=== PATIENT | male | born 1960 | race Caucasian/White ===

== ENCOUNTER 2020-12-28 06:30 | Day surgery (SDC) | payer OTHER, SELFPAY ==
[2020-12-25 11:43] VITALS: BMI 27.8
[2020-12-28 06:54] VITALS: BMI 27.6
[2020-12-28 06:55] VITALS: BP 119/75; PULSE 58; RESP 16; TEMP 35.9; O2SAT 97
[2020-12-28] MEDS: Lactated Ringers 1,000 ML 50 ML IV (07:04)
--- NOTE | 2020-12-28 07:13 | HO.ANESPROP2 ---
[facility] Past Medical History Medical History Arthritis [place] (obstructive sleep apnea) Family History Family history of problems with anesthesia: No Surgical History Surgical History H/O colonoscopy H/O right inguinal hernia repair Hx of left inguinal hernia repair History of Problems with Anesthesia: No Social History Social History Smoking Status: Never smoker Use of substances other than those prescribed or required for medical reasons: No Advance Directives: No Advance Directives Information Provided: Yes Meds Allergies Allergy/AdvReac Type Severity Reaction Status Date / Time HAYFEVER Allergy Mild ITCHY Uncoded 05/24/20 16:10 EYES, RUNNY NOSE, ETC. Active Medications: Current Medications Generic Name Dose Route Start Last Admin Trade Name Freq PRN Reason Stop Dose Admin Lactated Ringer's 1,000 mls @ 50 mls/hr 12/27/20 07:30 12/28/20 07:04 Lr IV 50 mls/hr .Q20H MIGUEL ÁNGEL Administration Sodium Biphosphate/Sodium Phosphate 133 ml 12/28/20 06:27 Sodium Phosphate,[place]-Dibasic 133 Ml Enema [place] ONCE PRN Poor Colonoscopy Prep Results Home Medications Medication Instructions Recorded Confirmed Last Taken Type multivitamin 1 tab PO DAILY 12/25/20 12/25/20 Unknown History Exam Exam Date and Time: December 28, 2020 0713 Height,Weight and Vital Signs: Height 6 ft 2 in Weight 97.522 kg Last Vital Signs Temp 96.7 F L 12/28/20 06:55 Pulse 58 12/28/20 06:55 Resp 16 12/28/20 06:55 BP 119/75 12/28/20 06:55 Pulse Ox 97 12/28/20 06:55 Airway Mallampati Class: I TM Dist: >3cm Neck ROM: Full Heart: ok Lungs: ok Assessment and Plan Assessment Anesthesia Assessment: Anesthesia Plan Discussed and Chart Reviewed Final Anesthetic Review NPO: Yes ASA Class: III Final Preanesthetic Review: No Changes in Pt Med Stat, Meds/Allgs Chart Reviewed, Consent Obtained/Reviewed and Anes Risks/Benef Reviewed Patient Risk: Intermediate Procedure Risk: Low Anesthetic Plan Anesthetic Plan: MAC: and Agree w/ Assess. and Plan Disposition: Standard PACU
[2020-12-28 08:30] VITALS: BP 101/61; PULSE 57; RESP 18; TEMP 36.6; O2SAT 96
--- NOTE | 2020-12-28 08:31 | PM.OP ---
Brief Operative Note Date of Service: 12/28/20 Pre-op diagnosis: Screening Post-op diagnosis: other (Colon polyps) Procedure: Colonoscopy to the cecum with biopsies and removal of polyps Surgeon: Jass Farfan Anesthesia: MAC Estimated blood loss (mL): 5.0 Pathology: other (A. Polyp at 50cm B. Polyps at 30cm) Condition: stable Disposition: PACU
[2020-12-28 08:45] VITALS: BP 120/65; PULSE 72; RESP 18; O2SAT 97
--- NOTE | 2020-12-28 12:45 | OP_ITS ---
SURGEON: Jass Farfan MD INDICATIONS: The patient presents for evaluation of colorectal cancer screening. Full consent has been obtained from him for this, including risks of bleeding and perforation. PREOPERATIVE DIAGNOSIS: Colorectal cancer screening. POSTOPERATIVE DIAGNOSIS: PROCEDURE PERFORMED: Colonoscopy to cecum with biopsy and removal of polyps. ESTIMATED BLOOD LOSS: COMPLICATIONS: ANESTHESIA: Monitored anesthesia care. ASSISTANTS: SPECIMENS: POSTOPERATIVE DIAGNOSES: Colorectal cancer screening, small colon polyps, diverticulosis, and internal hemorrhoids. DESCRIPTION OF PROCEDURE: The patient was placed in the left lateral decubitus position. The digital rectal exam revealed no abnormalities. The Olympus video pediatric colonoscope was entered into the rectum and advanced easily to the cecum. Once in the cecum, I did identify normal-appearing cecal pouch with appendiceal orifice and a normal-appearing ileocecal valve. The entire cecum and ileocecal valve were well visualized and appeared normal. There was transillumination of light deep in the right lower quadrant. The scope was slowly withdrawn assessing all mucosal surfaces carefully. Preparation was excellent. At 50 cm, was a flat approximately 3 mm polyp, which was biopsied and completely removed with cold biopsy forceps. At 30 cm, were 2 flat less than 5 mm polyps, which were each biopsied and completely removed with cold biopsy forceps and placed in the same container. I did not visualize any other polyps, colitis, nor angiodysplasia. There was a mild amount of sigmoid diverticulosis. In the rectum, scope was retroflexed visualizing small internal hemorrhoids, but no other pathology. The rectal mucosa appeared normal. The scope was straightened out and withdrawn from the patient. He tolerated the procedure well and was returned to the recovery area in stable condition. IMPRESSION: 1. Small colon polyps, status post biopsy and removal. 2. Diverticulosis. 3. Internal hemorrhoids. PLAN: The results of the biopsies will be checked. If these are tubular adenoma, I would recommend a followup colonoscopy in 5 years. If they are all hyperplastic, I would recommend a followup colonoscopy in 10 years. He will otherwise see me on a p.r.n. basis. MD YOSEF Hopkins/FREDY / [id number]
== END 2020-12-28 09:23 | disposition home or self-care (01) ==
PROVIDERS: PCP Internal Medicine; Visit Provider Internal Medicine
PROC: 0DJD8ZZ Inspection of Lower Intestinal Tract, Via Natural or Artificial Opening Endoscopic (ICD-10-PCS; CPT 45378; principal; 2020-12-28 07:30)
DX: Z12.11 Encounter for screening for malignant neoplasm of colon (principal); D12.5 Benign neoplasm of sigmoid colon; K57.30 Diverticulosis of large intestine without perforation or abscess without bleeding; K64.8 Other hemorrhoids; G47.33 Obstructive sleep apnea (adult) (pediatric)
CPT/HCPCS: 45380; 88305

== ENCOUNTER 2021-10-17 08:41 | Outpatient (REF) | payer OTHER, SELFPAY ==
[2021-10-17 09:01] LABS: MANUAL DIFF FLAG NO
[2021-10-17 09:17] LABS: Basophils Percent Auto 0.5 % (0-2); Eosinophils Absolute Auto 0.1 X10*3/uL (0.0-0.4); Eosinophils Percent Auto 1.7 % (0-4); Hematocrit 44.1 % (42.0-52.0); Hemoglobin 14.2 g/dl (14.0-18.0); Imm Gran Abs Auto 0.03 X10*3/uL (0.00-0.03); Imm Gran Pct Auto 0.5 % (0.0-0.4); Lymphocytes Absolute Auto 1.6 X10*3/uL (1.2-4.9); Lymphocytes Percent Auto 24.8 % (20-40); Mean Corpuscular HGB Conc 32.2 g/dl (31.0-36.0); Mean Corpuscular Hemoglobin 28.5 pg (27.0-33.0); Mean Corpuscular Volume 88.6 fL (80.0-98.0); Mean Platelet Volume 11.5 fL (9.4-12.4); Monocytes Absolute Auto 0.6 X10*3/uL (0.1-1.2); Monocytes Percent Auto 9.8 % (2-11); Neutrophils Percent Auto 62.7 % (45-73); Platelet Count 198 X10*3/uL (160-400); Red Blood Count 4.98 X10*6/uL (4.60-5.80); White Blood Count 6.4 X10*3/uL (4.8-10.8)
[2021-10-17 09:42] LABS: Alanine Aminotransferase 29 U/L (0-40); Albumin Level 4.1 g/dL (3.5-5.0); Alkaline Phosphatase 81 U/L (39-117); Anion Gap 9 (12-20); Aspartate Amino Transferase 15 U/L (5-37); Bilirubin Total 0.6 mg/dL (0.0-1.0); Blood Urea Nitrogen 18 mg/dL (9-16); Calcium 9.3 mg/dL (8.4-10.2); Carbon Dioxide 33 mmol/L (22-29); Chloride 102 mmol/L (96-108); Cholesterol 194 mg/dL; Estimated Glomerular Filt Rate > 60; Glucose Fasting 104 mg/dL (60-99); HDL Cholesterol 40 mg/dL; LDL Cholesterol Calculated 137 mg/dl; Potassium 4.8 mmol/L (3.3-5.1); Sodium 139 mmol/L (135-145); Total Protein 6.7 g/dL (6.5-8.0); Triglycerides 86 mg/dL
[2021-10-17 10:07] LABS: Thyroid Stimulating Hormone 2.44 uIU/mL (0.32-4.0); Vitamin D 25-OH Total 25.8 ng/mL (>30)
[2021-10-17 10:38] LABS: Prostate Specific Antigen 0.97 ng/mL (<0.05-4.0)
[2021-10-17 10:44] LABS: Appearance Urine HAZY; Color Urine YELLOW; Glucose Urine UA NEG (NEG); Leukocyte Esterase Urine NEG (NEG); Nitrite Urine NEG (NEG); Urine Blood NEG (NEG); Urine Ketones NEG (NEG); Urine Protein NEG (NEG-TRACE)
[2021-10-17 11:05] LABS: Amorphous Sediment Urine 3+ /LPF
[2021-10-17 11:07] LABS: RBC Urine 0 /HPF (0); WBC Urine 0 /HPF (0-4)
== END 2021-10-17 08:42 | disposition home or self-care (01) ==
LOC: HO.LAB 08:41
PROVIDERS: PCP Internal Medicine; Visit Provider Internal Medicine
DX: Z00.00 Encounter for general adult medical examination without abnormal findings (principal); Z12.5 Encounter for screening for malignant neoplasm of prostate; E78.00 Pure hypercholesterolemia, unspecified
CPT/HCPCS: 36415; 80053; 80061; 81001; 82306; 84153; 84443; 85025

== ENCOUNTER → 2022-09-15 13:50 | Outpatient (REF) | payer OTHER, SELFPAY ==
--- NOTE | 2022-09-15 13:53 | CA_ITS ---
Transthoracic Echocardiogram Patient (Last, First, Middle): Dustin Munoz W Gender: Male Date of : 1960 Age: 62 Procedure Date: 09/15/2022 Procedure Type: Transthoracic Echocardiogram Location: OP Height: 187.96 cm Weight: 102.97 kg BSA: 2.29 m2 Heart Rate: 62 bpm BP: 110 / 75 mmHg Customer Service Cashier: MELIA Referring MD: Jass White DO Symptoms: R07.9 EXTERNAL CHEST PAIN Study Quality: Adequate ECG Rhythm: Bradycardia Conclusions: - The left ventricular systolic function is normal. The calculated ejection fraction is 58% by biplane method. - No obvious valvular pathology seen on this study. Findings Left Ventricle Normal left ventricular cavity size. There is normal left ventricular wall thickness. The left ventricular systolic function is normal. The calculated ejection fraction is 58% by biplane method. There is no evidence of regional wall motion abnormalities. Diastolic function is normal for age. There is mild septal and mild basal asymmetric hypertrophy. LV peak GLS -19%. Mild focal hypertrophy of the basal septum. Right Ventricle Normal right ventricular cavity size and systolic function. Atria Both atria are normal in size. Aortic Valve There is a normal trileaflet aortic valve. There is no aortic valve stenosis. There is no aortic valve regurgitation. Mitral Valve The mitral valve appears normal. There is no mitral valve regurgitation. There is no mitral valve stenosis. Pulmonic Valve The pulmonic valve is likely normal. Tricuspid Valve Normal tricuspid valve structure. There is trace tricuspid valve regurgitation. There is no evidence of pulmonary hypertension. Great Vessels The asc aorta is normal in size. Venous The inferior vena cava is normal in size and collapses greater than 50% with inspiration. Pericardium/Pleural There is no evidence of pericardial effusion. Prior Study Comparison No prior study available for comparison. Recommendations, Care & Conclusions No obvious valvular pathology seen on this study. Measurements 2D Linear Measurements IVSd: 1.13 0.6-0.9/0.6-1.0 cm LVIDd: 5.13 3.9-5.3/4.2-5.9 cm LVIDd Index: 2.24 2.4-3.2/2.2-3.1 cm/m2 LVIDs: 3.75 2.0-3.6 cm LVPWd: 0.89 0.7-1.1 cm LA Diam: 3.90 2.7-3.8/3.0-4.0 cm LAIDs Index: 1.70 1.5-2.3 cm/m2 LV Mass: 239.90 67-162/88-224 g LV Mass Index: 104.76 43-95/49-115 g/m2 LVOT Diam: 2.40 3.0+(-)1.3 cm 2D Systolic Function EF 4C: 57.40 >55% EF 2C: 56.10 >55% EF BiP: 57.90 >55% Mitral Valve MV Pk E: 0.66 MV PK A: 0.70 MV Decel Time: 272.00 E/A: 0.90 E'Lateral: 7.72 E'Medial: 6.53 E/E' Med: 10.00 E/E' Lat: 8.50 PHT: 80.00 MVA PHT: 2.75 Decel [place]: 2.41 Aortic Valve AoV Pk Lorenzo: 1.04 AoV Mn Lorenzo: 0.78 AoV VTI: 0.23 AoV Pk Grad: 4.00 Aov Mn Grad: 3.00 ERICK Cont.VTI: 3.53 LVOT LVOT Pk Lorenzo: 0.84 LVOT Mn Lorenzo: 0.61 LVOT VTI: 0.18 LVOT Pk Grad: 3.00 LVOT Mn Grad: 2.00 LVOT Diam: 2.40 LVOT Area: 4.52 Diastolic Function MV Pk E: 0.66 MV Pk A: 0.70 E/A: 0.90 E'Medial: 6.53 E/E' Med: 10.00 E' Laterial: 7.72 E/E' Lat: 8.50 Right Ventricle TAPSE (mm): 25.40 TVS' Lorenzo: 11.60 Tricuspid Valve TR Pk Lorenzo: 1.66 TR Pk Grad: 11.00 RA Press: 3.00 RVSP: 14.00 Great Vessels Aorta Sinus of Valsalva: 4.40 2.0-3.5 cm Ao Asc: 3.60 2.1-3.4 cm Pulmonary Valve PV Pk Lorenzo: 0.83 Peak PV Grad: 3.00 Updated in Other Vendor System with Status of Final Delio Benoit MD electronically signed on 09/15/2022 4:12:17 PM with status of Final
== END ==
LOC: HO.CARD 13:50
PROVIDERS: Visit Provider Internal Medicine
DX: R07.9 Chest pain, unspecified (principal)
CPT/HCPCS: 93306; 93356

== ENCOUNTER → 2022-09-17 13:46 | Outpatient (BNVA) | payer OTHER, SELFPAY | PROVIDERS: PCP Internal Medicine; Visit Provider Internal Medicine Cardiovascular Disease | DX: R07.9 Chest pain, unspecified (principal) | CPT/HCPCS: 93005 ==

== ENCOUNTER → 2022-09-18 08:39 | Outpatient (REF) | payer OTHER, SELFPAY ==
--- NOTE | 2022-09-18 08:46 | CA_ITS ---
Acquisition Time: 2022-09-18 09:02:43 Total Exercise Time: 00:03:01 Test Indications: CHEST PAIN Medications: ASA NITROGLYCERIN Protocol: MARIAELENA Max HR: 130 BPM 82% of Pred: 157 BPM Max BP: 122/070 mmHG Max Work Load: 4.6 METS Exercise stress test with exercise 3 min 1 sec of Mariaelena protocol, achieving 82% MPHR, with report of 4/10 upper chest pressure, without sob, with PVCs and runs of RBBB, alternating with the incomplete RBBB, with normotensive response to exercise, with ST depressions inferiorly, V3-V6 with upslope STs, with ST elevation aVR, then in recovery with a downslope of STs inferiorly anjd V3-V6 and then improvement to baseline. His chest discomfort resolved in recovery. EKG tracings and report reviewed with Dr Rodriguez. Will plan for cardiac catheterizations. Procedure and risks reviewed with him. Will obtain preprocedure labs today. He has script for Metoprolol which he will start today. He will continue on aspirin and statin. He has NTG SL to use PRN for CP. Discussed light physical activity ONLY. Call 911 for CP not relieved with rest, 2 NTG. He is aware that his symptoms could be warning signs of furture heart attack. He was allowed to leave the stress lab in stable condition, asymptomatic. - Cardiac cath to be done tomorrow. Referred By: Yg Rodriguez Overread By: AURORA OLIVER
[2022-09-18 10:18] LABS: Hematocrit 46.1 % (42.0-52.0); Hemoglobin 15.4 g/dl (14.0-18.0); Mean Corpuscular HGB Conc 33.4 g/dl (31.0-36.0); Mean Corpuscular Hemoglobin 28.8 pg (27.0-33.0); Mean Corpuscular Volume 86.3 fL (80.0-98.0); Mean Platelet Volume 11.2 fL (9.4-12.4); Platelet Count 202 X10*3/uL (160-400); Red Blood Count 5.34 X10*6/uL (4.60-5.80); Red Cell Distribution Width 12.8 % (11.0-16.0); White Blood Count 6.9 X10*3/uL (4.8-10.8)
[2022-09-18 10:21] LABS: INTERNATIONAL NORM RATIO 1.1 (0.9-1.1); Prothrombin Time 12.7 SEC (10.0-13.1)
[2022-09-18 11:41] LABS: Anion Gap 8 (12-20); Blood Urea Nitrogen 19 mg/dL (9-16); Calcium 9.1 mg/dL (8.4-10.2); Carbon Dioxide 32 mmol/L (22-29); Chloride 103 mmol/L (96-108); Estimated Glomerular Filt Rate > 60; Glucose Random 99 mg/dL (60-115); Potassium 4.2 mmol/L (3.3-5.1); Sodium 139 mmol/L (135-145)
== END ==
LOC: HO.CARD 08:39
PROVIDERS: PCP Internal Medicine; Visit Provider Internal Medicine Cardiovascular Disease
DX: R07.9 Chest pain, unspecified (principal)
CPT/HCPCS: 36415; 80048; 85027; 85610; 93017

== ENCOUNTER → 2022-10-06 15:12 | Outpatient (BNVA) | payer OTHER, SELFPAY | PROVIDERS: PCP Internal Medicine; Referring Provider Internal Medicine; Visit Provider Internal Medicine Cardiovascular Disease | DX: Z13.89 Encounter for screening for other disorder (principal) ==

== ENCOUNTER 2022-10-28 12:53 | Outpatient (RCR) | payer OTHER, SELFPAY ==
[2022-10-28 13:00] VITALS: BP 114/68; BP 118/72
--- NOTE | 2022-10-28 14:31 | MHC.CR.ITI ---
[address] [phone] F: [phone] Please see additional notes from [facility] Initial Assessment/ITP Cardiac Rehab Initial Assessment/ITP Start: 10/24/22 12:50 Freq: Status: Active Protocol: Activity Type Activity Date Activity User E-sign Co-sign Detail Recorded Client Recorded Date Recorded By Document 10/28/22 13:00 LIZ [id number] 10/28/22 08:00 LIZ 10/28/22 13:00 Cardiac Rehab ITP Initial [Excercise] -Senior Sas Developer Required No -Preferred Language Scottish -Number of sessions approved 36 -Diagnosis Coronary Stenting (PCI) Z98.61 -Other Diagnosis CAD, [place] -Comments walk daily for 45-60 minutes daily. works up to power walking when able [Functional Assessment] -6 Min Walk (distance in ft) 1,600 -Stress Test (Mode) walk -METS Achieved 3.32 -Resting HR 77 -Resting BP 118/72 -Resting SpO2 97 -Exercise HR 101 -Exercise BP 114/68 -Exercise SpO2 97 -RPE 6 -Dyspnea No -ECG Summary SR/ST [Pre Rehab] -Pre Rehab Home Exercise Yes -Mode walk -Exercise Minutes/Day 30-60 -Exercise Days/Week daily -Intensity moderate -Comments does work up to power walking when able -Risk Stratification: Intermediate Functional Risk Participants capacity < 5-6 METs -Fall Risk No -Assistive Devices None -Comments gait even and steady [Exercise Plan] [Intervention] -Exercise Prescription NuStep, Recumbent Bike, Recumbent Elliptical, Rower,Treadmill ,UBE,Upright Bike,Weights -Duration Intensity 36 Sessions -Frequency 2-3x/week -Angina with Exercise No [Exercise Education] -Exercise Education Exercise orientation, Exercise safety ,Home exercise, RPE,Self pulse checking,Signs and symptoms, Warmup/cooldown -Date Completed 10/28/22 -Initials JA -Education Summary AT INTAKE AND ONGOING [Exercise Goals] -Exercise Most Days of the Week Yes -Exercise 30-45 mins/day Yes -Target HR Range +20 - +30 beats above resting -Target RPE range 11-13 -Increase METS next 30 days 0.5-1.0 METS Every two weeks -METs goal by Discharge 4 METS [Nutrition] [Hyperlipidemia] -Hyperlipidemia Yes -Are lab results available Yes -Lipid Draw Date 10/17/21 -Total Cholesterol 194 -LDL 137 -HDL 40 -Tryglycerides 86 [Diabetes] -Diabetes No -Are lab results available Yes -Fasting Glucose 104 -Date 10/17/21 [Weight Management] -Height 6 ft 2 in -Weight 100 kg -Recommended Diet cardiac diet -Comments given dash diet and reading nutritional labels handouts has lost about 8 lbs since hospital discharge [Drug/Alchohol Use] -Drug/Alcohol Use Yes -Type beer -Amount 2-3 weekly [Nutritional Screen (Rate Your Plate)] -Score 65 -Interpretation of Score making some healthy choices -Comments has made many changes [Nutrition Plan] [Intervention] -Referral(s) Not Applicable [Nutrition Education] -Nutrition Education Hydration, Nutrition, Reading food labels,Signs and symptoms of Hypo/Hyper- glycemia -Date Completed 10/28/22 -Initials JA -Education Summary AT INTAKE AND ONGOING [Nutrition Goals] -Goals BMI < 25, Fasting BG 80- 120 mg/dL,HDL > 40,LDL < 70, Total CHOL < 200 [Psycho/Social] -Stage of Change Maintenance -Learning Barriers None -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 -PHQ9 Score 0 -Interpretation of Score low risk for depression -Patient Self-Reports Depression Yes -Family Support Lives with spouse/others [Psycho/Social Plan] [Intervention] -Referral(s) No consult needed [Psycho/Social Education] -Psycho/Social Education Advanced directives, Coping techniques, Depression and CAD,Positive support system, Relaxation Techniques, Reviewed PHQ9 Score w/pt, Sexuality and CAD,Signs and symptoms of CAD ,Stress management -Date Completed 10/28/22 -Initials JA -Education Summary AT INTAKE AND ONGOING [Psycho/Social Goals] -Goals Not Applicable [Other Core Comp] [Risk Factors] -Risk Factors Dyslipidemia, Hypertension [Hypertension] -Hypertention Yes -Resting BP: 118/72 [Tobacco Use] -Patient Tobacco Use Status Never used Tobacco -Patient Interested in Nicotine No Replacement -Exposure to secondhand smoke No [Heart Failure] -Heart Failure No -EF% 58 -Dyspnea at Rest No -Dyspnea with Exercise No [Other Core Comp Plan] [Intervention] -Referral(s) Not Applicable [Other Core Comp Education] -Other Core Comp Education HF Disease progression, Medication compliance,Risk factor modifications, RPD Scale/SOB management, Understanding hypertension -Date Completed 10/28/22 -Initials JA -Education Summary AT INTAKE AND ONGOING [Other Core Comp Goals] -Goals Improve dyspnea ,Manage risk factors,Manage signs and symptoms of CHF ,Medication compliance, Resting BP < 130/80 [Medication Plan] [Intervention] -Medications ASA 81MG DAILY ATORVASTSTIN 40 MG DAILY METOPROLOL ER 25 MG DAILY MULTIVIT 1 DAILY NTG 0.4 MG Q5M X 3 PRN TICAGRELOR 90 MG BID tumeric 1500 daily fish oil 1200 mg daily -Compliance Patient reports compliance w/ prescribed meds [Medication Education] -Education Importance of medication compliance, Medication purpose, Medication schedule, Medication side effects -Date Completed 10/28/22 -Initials JA -Education Summary AT INTAKE AND ONGOING [Medication Goals] -Goals Adherence to medication compliance -Comments states good understanding of medications, their purpose, side effects and monitoring. [Treatment Times] -Rehab Services with ECG Monitor -Time 1300 -End Time 1430
[2022-11-13 08:16] VITALS: BP 100/60; BP 118/72; BP 128/66
--- NOTE | 2022-11-13 08:18 | MHC.CR.ITD ---
[address] [phone] F: [phone] Please see additional notes from [facility] Cardiac Rehab Discharge/ITP Cardiac Rehab Discharge/ITP Start: 10/24/22 12:50 Freq: Status: Active Protocol: Activity Type Activity Date Activity User E-sign Co-sign Detail Recorded Client Recorded Date Recorded By Document 11/13/22 08:16 [email or web address] [id number] 11/13/22 08:18 LIZ 11/13/22 08:16 Cardiac Rehab Discharge/ITP [Exercise] -Machine Biller Required No -Preferred Language Frisian -Total Sessions Attended 2 -Comments hAS DECIDED TO END CARDIAC REHAB HE IS ALREADY EXERCISING ON HIS OWN. walk daily for 45-60 minutes daily. works up to power walking when able [Functional Assessment] -6 Min Walk (distance in ft) 1,550 -Stress Test (Mode) walk -METS Achieved 3.25 -Resting HR 67 -Resting BP 100/60 -Resting SpO2 99 -Exercise HR 99 -Exercise BP 128/66 -Exercise SpO2 99 -RPE 6 -Fall Risk No [Exercise Plan] [Intervention] -Exercise Prescription NuStep, Recumbent Bike, Recumbent Elliptical, Rower,Treadmill ,UBE,Upright Bike,Weights -Duration Intensity 36 Sessions -Angina with Exercise No [Exercise Education] -Exercise Education Exercise orientation, Exercise safety ,Home exercise, RPE,Self pulse checking,Signs and symptoms, Warmup/cooldown -Date Completed 10/28/22 -Initials JA -Education Summary AT INTAKE AND ONGOING [Exercise Goals] -Exercise Most Days of the Week Yes -Exercise 30-45 mins/day Yes -Target HR Range +20 - +30 beats above resting -Target RPE range 11-13 -Increase METS next 30 days 0.5-1.0 METS Every two weeks -METs goal by Discharge 4 METS [Nutrition] [Hyperlipidemia] -Are lab results available Yes -Hyperlipidemia Yes -Lipid Draw Date 10/17/21 -Total Cholesterol 194 -LDL 137 -HDL 40 -Tryglycerides 86 [Diabetes] -Diabetes No -Fasting Glucose 104 -Date 10/17/21 [Weight Management] -Weight 100 kg -Comments given dash diet and reading nutritional labels handouts has lost about 8 lbs since hospital discharge [Drug/Alchohol Use] -Drug/Alcohol Use Yes [Nutrition Plan] [Intervention] -Attended Not Applicable [Nutrition Education] -Nutrition Education Hydration, Nutrition, Reading food labels,Signs and symptoms of Hypo/Hyper- glycemia -Date Completed 10/28/22 - JA -Education Summary AT INTAKE AND ONGOING [Nutrition Goals] -Goals BMI < 25, Fasting BG 80- 120 mg/dL,HDL > 40,LDL < 70, Total CHOL < 200 [Psycho/Social] -Stage of Change Maintenance -Occupation Currently working -PHQ9 Score 0 -Interpretation of Score low risk for depression -Patient Self-Reports Depression Yes [Psycho/Social Plan] [Intervention] -Attended No consult needed [Psycho/Social Education] -Psycho/Social Education Advanced directives, Coping techniques, Depression and CAD,Positive support system, Relaxation Techniques, Reviewed PHQ9 Score w/pt, Sexuality and CAD,Signs and symptoms of CAD ,Stress management -Date Completed 10/28/22 - JA -Education Summary AT INTAKE AND ONGOING [Psycho/Social Goals] -Goals Not Applicable [Other Core Comp] [Hypertension] -Hypertention Yes -Resting BP: 118/72 [Heart Failure] -Dyspnea at Rest No -Dyspnea with Exercise No [Other Core Comp Plan] [Intervention] -Attended Not Applicable [Other Core Comp Education] -Other Core Comp Education HF Disease progression, Medication compliance,Risk factor modifications, RPD Scale/SOB management, Understanding hypertension -Date Completed 10/28/22 - JA -Education Summary AT INTAKE AND ONGOING [Other Core Comp Goals] -Goals Improve dyspnea ,Manage risk factors,Manage signs and symptoms of CHF ,Medication compliance, Resting BP < 130/80 [Medication Plan] [Intervention] -Medications ASA 81MG DAILY ATORVASTSTIN 40 MG DAILY METOPROLOL ER 25 MG DAILY MULTIVIT 1 DAILY NTG 0.4 MG Q5M X 3 PRN TICAGRELOR 90 MG BID tumeric 1500 daily fish oil 1200 mg daily -Compliance Patient reports compliance w/ prescribed meds [Medication Education] -Education Importance of medication compliance, Medication purpose, Medication schedule, Medication side effects -Date Completed 10/28/22 - JA -Education Summary AT INTAKE AND ONGOING [Medication Goals] -Goals Adherence to medication compliance -Comments states good understanding of medications, their purpose, side effects and monitoring.
== END 2022-11-13 08:37 | disposition home or self-care (01) ==
LOC: HO.CR 12:53
PROVIDERS: PCP Internal Medicine; Visit Provider Internal Medicine Cardiovascular Disease
DX: R07.9 Chest pain, unspecified (principal); Z95.5 Presence of coronary angioplasty implant and graft
CPT/HCPCS: 93798

== ENCOUNTER 2023-01-07 09:33 | Outpatient (REF) | payer OTHER, SELFPAY ==
[2023-01-07 11:20] LABS: Alanine Aminotransferase 84 U/L (0-40); Albumin Level 4.1 g/dL (3.5-5.0); Alkaline Phosphatase 76 U/L (39-117); Anion Gap 10 (12-20); Aspartate Amino Transferase 42 U/L (5-37); Bilirubin Total 1.3 mg/dL (0.0-1.0); Blood Urea Nitrogen 18 mg/dL (9-16); Calcium 9.1 mg/dL (8.4-10.2); Carbon Dioxide 30 mmol/L (22-29); Chloride 107 mmol/L (96-108); Cholesterol 121 mg/dL; Estimated Glomerular Filt Rate > 60; Glucose Random 88 mg/dL (60-115); HDL Cholesterol 40 mg/dL; LDL Cholesterol Calculated 73 mg/dl; Potassium 4.3 mmol/L (3.3-5.1); Sodium 143 mmol/L (135-145); Total Protein 6.4 g/dL (6.5-8.0); Triglycerides 42 mg/dL
[2023-01-09 08:20] LABS: CRP High Sensitivity 1.7 mg/L
== END 2023-01-07 09:34 | disposition home or self-care (01) ==
LOC: HO.LAB 09:33
PROVIDERS: Absent Provider Internal Medicine; PCP Internal Medicine; Visit Provider Internal Medicine Cardiovascular Disease
DX: I25.10 Atherosclerotic heart disease of native coronary artery without angina pectoris (principal); E78.00 Pure hypercholesterolemia, unspecified
CPT/HCPCS: 36415; 80053; 80061; 86141

== ENCOUNTER → 2023-01-28 08:56 | Outpatient (BNVA) | payer OTHER, SELFPAY | PROVIDERS: PCP Internal Medicine; Visit Provider Internal Medicine Cardiovascular Disease ==

== ENCOUNTER 2023-05-18 09:30 | Outpatient (REF) | payer OTHER, SELFPAY ==
[2023-05-18 09:59] LABS: MANUAL DIFF FLAG NO
[2023-05-18 10:32] LABS: Basophils Percent Auto 0.6 % (0-2); Eosinophils Absolute Auto 0.1 X10*3/uL (0.0-0.4); Eosinophils Percent Auto 2.6 % (0-4); Hematocrit 44.9 % (42.0-52.0); Hemoglobin 14.8 g/dl (14.0-18.0); Imm Gran Abs Auto 0.01 X10*3/uL (0.00-0.03); Imm Gran Pct Auto 0.2 % (0.0-0.4); Lymphocytes Absolute Auto 1.4 X10*3/uL (1.2-4.9); Lymphocytes Percent Auto 26.1 % (20-40); Mean Corpuscular Hemoglobin 29.2 pg (27.0-33.0); Mean Corpuscular Volume 88.7 fL (80.0-98.0); Mean Platelet Volume 11.5 fL (9.4-12.4); Monocytes Absolute Auto 0.6 X10*3/uL (0.1-1.2); Monocytes Percent Auto 11.4 % (2-11); Neutrophils Absolute Auto 3.2 x10*3/uL (2.0-8.3); Neutrophils Percent Auto 59.1 % (45-73); Platelet Count 177 X10*3/uL (160-400); Red Blood Count 5.06 X10*6/uL (4.60-5.80); Red Cell Distribution Width 12.8 % (11.0-16.0); White Blood Count 5.4 X10*3/uL (4.8-10.8)
[2023-05-18 11:21] LABS: Alanine Aminotransferase 58 U/L (0-40); Albumin Level 4.2 g/dL (3.5-5.0); Alkaline Phosphatase 74 U/L (39-117); Anion Gap 11 (12-20); Aspartate Amino Transferase 33 U/L (5-37); Blood Urea Nitrogen 17 mg/dL (9-16); Calcium 9.2 mg/dL (8.4-10.2); Carbon Dioxide 29 mmol/L (22-29); Chloride 105 mmol/L (96-108); Cholesterol 127 mg/dL (<200); Estimated Glomerular Filt Rate > 60; Glucose Fasting 96 mg/dL (60-99); HDL Cholesterol 46 mg/dL (>40); LDL Cholesterol Calculated 69 mg/dL (<100); Sodium 141 mmol/L (135-145); Total Protein 6.6 g/dL (6.5-8.0); Triglycerides 61 mg/dL (<150)
[2023-05-18 11:26] LABS: Thyroid Stimulating Hormone 2.36 uIU/mL (0.32-4.0)
[2023-05-18 11:28] LABS: PSA,Total (Free>4and<10) 1.07 ng/mL (0.00-4.00)
== END 2023-05-18 09:31 | disposition home or self-care (01) ==
LOC: HO.LAB 09:30
PROVIDERS: PCP Internal Medicine; Visit Provider Internal Medicine
DX: Z12.5 Encounter for screening for malignant neoplasm of prostate (principal); I25.10 Atherosclerotic heart disease of native coronary artery without angina pectoris; E78.00 Pure hypercholesterolemia, unspecified
CPT/HCPCS: 36415; 80053; 80061; 84153; 84443; 85025

== ENCOUNTER 2023-07-28 09:01 | Outpatient (AMB) | payer OTHER, SELFPAY ==
--- NOTE | 2023-07-28 09:06 | MHC.OFFVIS ---
Intake Vital Signs 07/28/23 09:08 Height 6 ft 2 in Weight 213 lb 13.574 oz BMI 27.5 BP 120/80 Blood Pressure Location Lt brachial Position Sitting Pulse 62 Intake Visit Reasons: 6 mth f/up Intake Note: 6 mth f/up everything good Email Marketing Coordinator Required: No Allergies HAYFEVER Allergy (Mild, Uncoded 05/24/20 16:10) ITCHY EYES, RUNNY NOSE, ETC. Medication List - Last Reconciled 07/28/23 by Yg Rodriguez MD aspirin (Adult Aspirin Regimen) 81 mg PO DAILY atorvastatin 80 mg PO DAILY multivitamin 1 tab PO DAILY nitroglycerin 0.4 mg sublingual TID PRN ticagrelor (Brilinta) 90 mg PO BID 90 days HPI HPI Comments History of Present Illness Details Dustin comes for follow-up. He has been doing very well from cardiac perspective. He has been regularly exercising without any exertional chest pain. Takes all his medications. Last LDL 69 mg/dL. Blood pressure at home is been well controlled. Notices some bruising related to his dual antiplatelet therapy otherwise no major bleeding issues. [facility] Medical History CAD (coronary artery disease) Exertional chest pain [place] (obstructive sleep apnea) Arthritis Surgical History Stented coronary artery H/O right inguinal hernia repair Hx of left inguinal hernia repair H/O colonoscopy Family History Father No problems noted. Mother Afib Social History Alcohol intake: current Alcohol intake frequency: holidays/special occasions only Patient Tobacco Use Status: Never used Tobacco Review of Systems Const Denies chills, Denies fatigue, Denies fever(s), Denies frequent falls, Denies weakness, Denies weight gain and Denies weight loss ENT Denies dizziness Card Denies chest pain, Denies leg edema, Denies lightheadedness, Denies palpitations, Denies dyspnea, Denies dyspnea on exertion, Denies orthopnea and Denies other (loss of consciousness) Resp Denies cough, Denies dyspnea and Denies dyspnea on exertion GI Denies hematochezia and Denies change in stool character Musc Denies abnormal gait, Denies muscle weakness, Denies numbness, Denies radiating pain into limb and Denies tingling Neuro Denies Abnormal speech present, Denies abnormal gait, Denies dizziness, Denies frequent falls, Denies numbness, Denies tingling and Denies weakness Endo Denies fatigue and Denies palpitations Physical Exam Vital Signs: Last Vital Signs Pulse 62 07/28/23 09:08 BP 120/80 07/28/23 09:08 BMI result Body Mass Index 27.5 Const General: cooperative, comfortable, no acute distress, well developed, alert and awake Nutritional Appearance: average body habitus Orientation/consciousness: patient oriented x3 Limitations: no limitations Neck Neck: Yes trachea midline, Yes supple and Yes no JVD Chest Chest palpation & inspection: abnormal inspection of the chest other (Mild pectus excavatum) Resp Effort & Inspection: normal respiratory effort Auscultation: clear to auscultation bilaterally Cardio Jugular venous distension: no JVD Palpation: normal PMI Rate: regular rate Rhythm: regular rhythm Heart sounds: S1 normal heart sound present, S2 normal heart sound present, no click, no gallops, no murmurs and no rubs Bruits: no carotid bruits GI Auscultation: normal bowel sounds Neuro General: patient oriented x3 and no focal motor deficits Speech: No Abnormal speech present Extrem General: Yes no clubbing, cyanosis or edema Psych Appearance: grossly normal Office Procedures EKG Details: EKG shows normal sinus rhythm with normal EKG [id number], Complete Assessment & Plan Assessment & Plan (1) CAD (coronary artery disease): Code(s): I25.10 - Atherosclerotic heart disease of [place] coronary artery without angina pectoris Plan: CAD with drug-eluting stent to the LAD for exertional angina with no recurrent symptoms with exercise. He is doing well from that perspective. Continue aggressive medical therapy. Continue dual antiplatelet therapy uninterrupted for 1 year and can continue prolonged dual antiplatelet therapy for 30 months. Will switch to Plavix at his 1 year anniversary. Continue high-intensity statin therapy. LDL is at goal but would like to push down to 60 mg/dL. This was discussed with him. Continue dietary modification. Continue to maintain activity level as tolerated. Advised to call me with any new symptoms. Will follow up in the clinic in 1 year's time after lipid panel. Thank you for allowing me to partake in his care Orders: Orders Lipid Panel 50 Weeks I25.10 - Atherosclerotic heart disease of [place] coronary artery without angina pectoris Coding Level of Care Code Est Pt Level 3 (99777) Diagnoses CAD (coronary artery disease) I25.10 CPT Codes EKG - CPT: 92196-[id number], Complete ([id number])
[2023-07-28 09:08] VITALS: BP 120/80; PULSE 62; BMI 27.5
== END 2023-07-28 09:24 | disposition home or self-care (01) ==
PROVIDERS: Visit Provider Internal Medicine Cardiovascular Disease
DX: I25.10 Atherosclerotic heart disease of native coronary artery without angina pectoris (principal)
CPT/HCPCS: 93010; 99213

== ENCOUNTER → 2023-07-28 09:01 | Outpatient (BNVA) | payer OTHER, SELFPAY | PROVIDERS: Visit Provider Internal Medicine Cardiovascular Disease | DX: I25.10 Atherosclerotic heart disease of native coronary artery without angina pectoris (principal) | CPT/HCPCS: 93005 ==

== ENCOUNTER 2024-02-22 08:52 | Outpatient (REF) | payer MEDICARE, SELFPAY ==
[2024-02-22 09:15] LABS: MANUAL DIFF FLAG NO
[2024-02-22 09:30] LABS: Basophils Percent Auto 0.6 % (0-2); Eosinophils Absolute Auto 0.1 X10*3/uL (0.0-0.4); Eosinophils Percent Auto 2.6 % (0-4); Hematocrit 45.6 % (42.0-52.0); Imm Gran Abs Auto 0.01 X10*3/uL (0.00-0.03); Imm Gran Pct Auto 0.2 % (0.0-0.4); Lymphocytes Absolute Auto 1.6 X10*3/uL (1.2-4.9); Lymphocytes Percent Auto 33.8 % (20-40); Mean Corpuscular HGB Conc 32.9 g/dl (31.0-36.0); Mean Corpuscular Hemoglobin 29.8 pg (27.0-33.0); Mean Corpuscular Volume 90.5 fL (80.0-98.0); Mean Platelet Volume 11.8 fL (9.4-12.4); Monocytes Absolute Auto 0.6 X10*3/uL (0.1-1.2); Monocytes Percent Auto 12.2 % (2-11); Neutrophils Absolute Auto 2.4 x10*3/uL (2.0-8.3); Neutrophils Percent Auto 50.6 % (45-73); Platelet Count 165 X10*3/uL (160-400); Red Blood Count 5.04 X10*6/uL (4.60-5.80); Red Cell Distribution Width 12.8 % (11.0-16.0); White Blood Count 4.7 X10*3/uL (4.8-10.8)
[2024-02-22 10:05] LABS: Alanine Aminotransferase 25 U/L (0-40); Albumin Level 4.1 g/dL (3.5-5.0); Alkaline Phosphatase 86 U/L (39-117); Anion Gap 10 (12-20); Aspartate Amino Transferase 23 U/L (5-37); Bilirubin Total 0.9 mg/dL (0.0-1.0); Blood Urea Nitrogen 17 mg/dL (9-16); Calcium 8.9 mg/dL (8.4-10.2); Carbon Dioxide 31 mmol/L (22-29); Chloride 106 mmol/L (96-108); Cholesterol 111 mg/dL (<200); Estimated Glomerular Filt Rate > 60; Glucose Fasting 98 mg/dL (60-99); HDL Cholesterol 44 mg/dL (>40); LDL Cholesterol Calculated 60 mg/dL (<100); Potassium 4.1 mmol/L (3.3-5.1); Sodium 143 mmol/L (135-145); Total Protein 6.7 g/dL (6.5-8.0); Triglycerides 38 mg/dL (<150)
[2024-02-22 10:22] LABS: Thyroid Stimulating Hormone 2.31 uIU/mL (0.32-4.0)
== END 2024-02-22 08:53 | disposition home or self-care (01) ==
LOC: HO.LAB 08:52
PROVIDERS: PCP Internal Medicine; Visit Provider Internal Medicine
DX: I25.10 Atherosclerotic heart disease of native coronary artery without angina pectoris (principal); E78.00 Pure hypercholesterolemia, unspecified
CPT/HCPCS: 36415; 80053; 80061; 84443; 85025

== ENCOUNTER 2024-06-03 10:36 | Outpatient (REF) | payer MEDICARE, SELFPAY ==
[2024-06-03 12:11] LABS: PSA,Total (Free>4and<10) 1.16 ng/mL (0.00-4.00)
== END 2024-06-03 10:37 | disposition home or self-care (01) ==
LOC: HO.LAB 10:36
PROVIDERS: PCP Internal Medicine; Visit Provider Internal Medicine
DX: Z12.5 Encounter for screening for malignant neoplasm of prostate (principal)
CPT/HCPCS: 36415; 84153

== ENCOUNTER 2024-08-01 08:42 | Outpatient (AMB) | payer MEDICARE, OTHER, SELFPAY ==
[2024-08-01 08:48] VITALS: BP 122/76; PULSE 72; BMI 27.7
--- NOTE | 2024-08-01 08:48 | MHC.OFFVIS ---
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 Medication List - Last Reconciled 08/01/24 by Yg Rodriguez MD aspirin (Adult Aspirin Regimen) 81 mg PO DAILY atorvastatin 80 mg PO DAILY clopidogrel (Plavix) 75 mg PO DAILY multivitamin 1 tab PO DAILY HPI Comments Details: Dustin comes for follow-up. He has been doing well from cardiac perspective. Remains active. Says he goes out for a walk 5 days a week. He can walk for 40 minutes with length without any symptoms of chest pain. Taking all his medications. No bleeding issues. Last LDL at 60 mg/dL which is well optimized. Denies any shortness of breath, orthopnea, PND, leg edema. No claudication. No lightheadedness, syncope, palpitations. [facility] Medical History CAD (coronary artery disease) Exertional chest pain CARLTON (obstructive sleep apnea) Arthritis Surgical History Stented coronary artery H/O right inguinal hernia repair Hx of left inguinal hernia repair H/O colonoscopy Family History Father No problems noted. Mother Afib Social History Alcohol intake: current Alcohol intake frequency: holidays/special occasions only Patient Tobacco Use Status: Never used Tobacco Review of Systems Const Denies chills, Denies fatigue, Denies fever(s), Denies frequent falls, Denies weakness, Denies weight gain and Denies weight loss ENT Denies dizziness Card Denies chest pain, Denies leg edema, Denies lightheadedness, Denies palpitations, Denies dyspnea, Denies dyspnea on exertion, Denies orthopnea and Denies other (loss of consciousness) Resp Denies cough, Denies dyspnea and Denies dyspnea on exertion GI Denies hematochezia and Denies change in stool character Musc Denies abnormal gait, Denies muscle weakness, Denies numbness, Denies radiating pain into limb and Denies tingling Neuro Denies Abnormal speech present, Denies abnormal gait, Denies dizziness, Denies frequent falls, Denies numbness, Denies tingling and Denies weakness Endo Denies fatigue and Denies palpitations Physical Exam Vital Signs: Last Vital Signs Pulse 72 08/01/24 08:48 BP 122/76 08/01/24 08:48 BMI result Body Mass Index 27.7 Const General: cooperative, comfortable, no acute distress, well developed, alert and awake Nutritional Appearance: average body habitus Orientation/consciousness: patient oriented x3 Limitations: no limitations Neck Neck: Yes trachea midline, Yes supple and Yes no JVD Chest Chest palpation & inspection: abnormal inspection of the chest other (Mild pectus excavatum) Resp Effort & Inspection: normal respiratory effort Auscultation: clear to auscultation bilaterally Cardio Jugular venous distension: no JVD Palpation: normal PMI Rate: regular rate Rhythm: regular rhythm Heart sounds: S1 normal heart sound present, S2 normal heart sound present, no click, no gallops, no murmurs and no rubs Bruits: no carotid bruits GI Auscultation: normal bowel sounds Neuro General: patient oriented x3 and no focal motor deficits Speech: No Abnormal speech present Extrem General: Yes no clubbing, cyanosis or edema Psych Appearance: grossly normal Office Procedures EKG Details: EKG shows normal sinus rhythm with interpolated PVC otherwise normal EKG 42125-[id number], Complete Assessment & Plan Assessment & Plan (1) CAD (coronary artery disease): Code(s): I25.10 - Atherosclerotic heart disease of [place] coronary artery without angina pectoris Category: Medical Plan: Stable CAD with drug-eluting stent to LAD for exertional crescendo angina about 2 years ago. Continue dual antiplatelet therapy for total of 30 months. At 30 months Plavix can be discontinued. Continue lifelong aspirin therapy. Rationale for this was discussed in details. Continue high-intensity statin therapy. LDL is well optimized. Advise annual lipid check with CRP. Follow-up in 7 months. Encouraged to maintain activity level as tolerated. Advised to call me with any exertional symptoms. (2) PVC (premature ventricular contraction): Code(s): I49.3 - Ventricular premature depolarization Plan: Noted PVC today without any obvious symptoms. No specific pharmacotherapy is recommended. Advised to call me with any new symptoms. Avoidance of stimulants was discussed. Stress mitigation strategies were discussed. Follow up in the clinic in 1 year's time, sooner p.r.n.. Thank you for allowing me to partake in his care Orders: Orders CRP High Sensitivity 8 Months E78.5 - Hyperlipidemia, unspecified, I25.10 - Atherosclerotic heart disease of [place] coronary artery without angina pectoris Lipid Panel 8 Months I25.10 - Atherosclerotic heart disease of [place] coronary artery without angina pectoris Coding Level of Care Code Est Pt Level 4 (80474) Complex EM visit Add On G2211 Diagnoses CAD (coronary artery disease) I25.10 PVC (premature ventricular contraction) I49.3 CPT Codes EKG - CPT: 15716-[id number], Complete ([id number])
== END 2024-08-01 09:20 | disposition home or self-care (01) ==
PROVIDERS: PCP Internal Medicine; Visit Provider Internal Medicine Cardiovascular Disease
DX: I25.10 Atherosclerotic heart disease of native coronary artery without angina pectoris (principal); I49.3 Ventricular premature depolarization
CPT/HCPCS: 93010; 99214; G2211

== ENCOUNTER → 2024-08-01 08:42 | Outpatient (BNVA) | payer MEDICARE, OTHER, SELFPAY | PROVIDERS: PCP Internal Medicine; Visit Provider Internal Medicine Cardiovascular Disease | DX: I49.3 Ventricular premature depolarization (principal); I25.10 Atherosclerotic heart disease of native coronary artery without angina pectoris; I10 Essential (primary) hypertension; Z95.5 Presence of coronary angioplasty implant and graft | CPT/HCPCS: 93005; 99212 ==

== ENCOUNTER 2024-11-16 09:57 | Outpatient (AMB) | payer MEDICARE, OTHER, SELFPAY ==
--- NOTE | 2024-11-16 10:02 | A.OFFPC_ITS ---
Vital Signs 11/16/24 10:09 Height 6 ft 2 in Weight 218 lb BMI 28.0 BP 118/58 L Blood Pressure Location Rt brachial Pulse 69 Pulse Source Pulse Oximeter Temp 97.5 F Pulse Oximetry (%) 96 Intake Visit Reasons: 6 month follow up Intake Note: no other issues Allergies HAYFEVER Allergy (Mild, Uncoded 11/16/24 11:20) ITCHY EYES, RUNNY NOSE, ETC. Medication List - Last Reconciled 11/16/24 by Mckenzie Clemons PA-C aspirin (Adult Aspirin Regimen) 81 mg PO DAILY atorvastatin 80 mg PO DAILY clopidogrel 75 mg PO DAILY multivitamin 1 tab PO DAILY omega 0-chc-wux-fish oil 100-160-1,000 mg (Fish Oil) caps PO turmeric root extract 500 mg PO TID PFSH Medical History (Updated 11/16/24 @ 11:24 by Mckenzie Clemons PA-C) Overweight with body mass index (BMI) of 28 to 28.9 in adult Exertional chest pain History of echocardiogram (~09/25/22) Atopic dermatitis Mild hypercholesterolemia Left varicocele Seasonal allergies CAD (coronary artery disease) CARLTON (obstructive sleep apnea) Arthritis Surgical History Stented coronary artery H/O right inguinal hernia repair Hx of left inguinal hernia repair H/O colonoscopy (~12/28/20) Family History Father No problems noted. Mother Afib Social History Alcohol intake: current Alcohol intake frequency: holidays/special occasions only Patient Tobacco Use Status: Never used Tobacco Physical exam (Primary Care) Vital Signs: Last Vital Signs Temp 97.5 F 11/16/24 10:09 Pulse 69 11/16/24 10:09 BP 118/58 L 11/16/24 10:09 Pulse Ox 96 11/16/24 10:09 Care Plan Goal for BP management: <130/80 at Goal BMI result Body Mass Index 28.0 BMI Assessment/Plan discussion: High BMI High, discussed plan: lifestyle, weight reduction, dietary, physical activity and alcohol moderation Tobacco/Smoking Status: Tobacco use Status Patient Tobacco Use Status Never used Tobacco 11/16/24 10:12 Coding Level of Care Code New Pt Level 4 (78135) Complex EM visit Add On G2211 Diagnoses Overweight with body mass index (BMI) of 28 to 28.9 in adult E66.3; Z68.28 Arthritis M19.90 CARLTON (obstructive sleep apnea) G47.33 Mild hypercholesterolemia E78.00 Seasonal allergies J30.2 CAD (coronary artery disease) I25.10 Assessment & Plan Assessment & Plan (1) Overweight with body mass index (BMI) of 28 to 28.9 in adult: Code(s): E66.3 - Overweight; Z68.28 - Body mass index [BMI] 28.0-28.9, adult Category: Medical Plan: Patient to improve his diet and exercise regimen. Condition is chronic and stable continue to monitor. (2) Arthritis: Code(s): M19.90 - Unspecified osteoarthritis, unspecified site Category: Medical Plan: Condition is chronic and stable continue to monitor. (3) CARLTON (obstructive sleep apnea): Comment: uses mouthguard, no CPAP Code(s): G47.33 - Obstructive sleep apnea (adult) (pediatric) Category: Medical Plan: Condition is chronic and stable continue to monitor. (4) Mild hypercholesterolemia: Code(s): E78.00 - Pure hypercholesterolemia, unspecified Category: Medical Plan: Patient to continue atorvastatin 80 mg daily. Goal LDL less than 70. Last LDL on 02/22/2024 was 60 at Goal. Will continue current regimen. Condition is chronic and stable continue to monitor. (5) Seasonal allergies: Comment: On allergy shots every [address] aP Code(s): J30.2 - Other seasonal allergic rhinitis Category: Medical Plan: Patient to continue allergy shots every [address] Pa. Condition is chronic and stable continue to monitor. (6) CAD (coronary artery disease): Comment: Drug-eluting stent, proximal LAD for crescendo angina in 09/2022 Code(s): I25.10 - Atherosclerotic heart disease of [place] coronary artery without angina pectoris Category: Medical Plan: Patient to continue aspirin 81 mg daily, atorvastatin 80 mg daily, Plavix 75 mg daily along with being followed by Cardiology Dr. Rodriguez and Dr. Benoit. Condition is chronic and stable continue to monitor. Plan Plan Patient was informed and verbally consented to the use of an ambient scribe for clinic note documentation during this visit. 1. Seasonal Allergic Rhinitis Continued management with regular allergy shots is recommended. 2. Pitting Edema Related To Varicose Veins Suggest continuation of compression stockings for edema management. 3. Obstructive Sleep Apnea Continuation of current treatment protocols as no additional interventions were discussed. 4. Scrotal varices Ongoing monitoring, assumed managed conservatively. 5. Hyperlipidemia Maintenance of Atorvastatin; encouraged due to laboratory results. 6. Cervical Disc Herniation C6-C7 Continuation of conservative management recommended. 7. Coronary Artery Disease With Stent Follow previously established plan with cardiology consultation as needed. Discussion Notes During today's consultation, we reviewed the patient's chronic conditions including hyperlipidemia, obstructive sleep apnea, and coronary artery disease. We discussed the patient's six-month follow-up, with emphasis on medication adherence including continued use of Atorvastatin, aspirin, and Plavix until advised otherwise. We reviewed the success of the stent procedure and follow-up care with cardiology. Current allergy and varicose vein management strategies were reviewed, including the use of allergy shots and compression stockings, respectively. We also covered the potential for alternative colorectal screening using Cologuard as an option before the next colonoscopy, with patient interest noted. The timeline for discontinuation of anticoagulants was reiterated as planned for the summer. Future blood work and screening processes were outlined clearly with encouragement to report any adverse symptoms before a year follow- up appointment. Orders: Orders Complete Blood Count Auto Diff Today Z00.00 - Encounter for general adult medical examination without abnormal findings Hemoglobin A1c Today Z00.00 - Encounter for general adult medical examination without abnormal findings Lipid Panel Today Z00.00 - Encounter for general adult medical examination without abnormal findings Magnesium Today Z00.00 - Encounter for general adult medical examination without abnormal findings Liver Panel Today Z00.00 - Encounter for general adult medical examination without abnormal findings Vitamin B12 and Folate Today Z00.00 - Encounter for general adult medical examination without abnormal findings C Reactive Protein Today Z00.00 - Encounter for general adult medical examination without abnormal findings Comprehensive [place]. Panel Fast Today Z00.00 - Encounter for general adult medical examination without abnormal findings TSH reflex Free T4 Today Z00.00 - Encounter for general adult medical examination without abnormal findings Vitamin B1 Today Z00.00 - Encounter for general adult medical examination without abnormal findings Vitamin D 25-OH Total Today Z00.00 - Encounter for general adult medical examination without abnormal findings Patient Instructions: Patient Instructions - Continue current medications as prescribed for hyperlipidemia and coronary artery disease. - Use compression stockings for varicose veins as needed. - Attend follow-up appointments with cardiology and primary care per schedule. - Repeat blood work and any pending screenings at your convenience, fasting for 12 hours prior. - Continue with regular allergy shot regimen. - Utilize hearing aids as needed, ensuring regular auditory checks. - Be aware of any worsening symptoms and contact the office for urgent concerns. - Return in one year for follow-up unless new issues arise. Scribe Plan - Not visible on output: History of Present Illness The patient is a 64-year-old male presenting with a visit focused on chronic condition management and wellness. The patient has seasonal allergic rhinitis, managed with regular allergy shots. A cervical disc herniation has been managed conservatively. Hyperlipidemia and obstructive sleep apnea are among his chronic conditions, and his chest pain was alleviated with a coronary stent placement. He has completed routine screenings, with recent blood work showing normal functions across several parameters. Compression stockings are used for pitting edema related to varicose veins. Social History - The patient lives independently and manages self-care activities like laundry and cooking. - No recent falls reported. - Reports using hearing aids and has regular dental checks. Review of Systems - Cardiovascular: Denies current chest pain or exertional symptoms. - Respiratory: Denies shortness of breath. - Gastrointestinal: Denies abdominal pain or changes in bowel habits. - Musculoskeletal: Denies recent falls. - Neurological: Denies dizziness. - Dermatological: No recent changes. - Endocrine: Denies symptoms. - Mental Health: Denies depressive symptoms. Physical Exam Appearance: Alert. Oriented X3. No acute distress. Head: Normal external exam. Normocephalic. Atraumatic. Eyes: Pupils are equal, round, and reactive to light. Extraocular movements intact. Conjunctiva and sclera normal. Eyelids normal. Ears: External auditory canal normal. Tympanic membranes normal. Patient uses hearing aids. Throat: Pharynx normal. Uvula midline. Moist mucous membranes. No dental problems noted. Neck: Normal inspection. Neck supple. Full range of motion. No adenopathy. Thyroid Normal. No meningeal signs. No neck mass noted. Cardiovascular: Normal heart rate and rhythm. Heart sound normal. No murmurs noted. Pulses normal throughout. Blood pressure is 118/58. Respiratory: No respiratory distress. Painless inspiration. Breath sounds normal. No wheezes/rales/rhonchi noted. Chest nontender. No accessory muscle usage noted or decreased air movement noted. Abdomen: Soft and nontender. Bowel sounds normal in all 4 quadrants. No distention noted. No organomegaly noted. No visible injury noted. Back: No costovertebral angle tenderness. Full range of motion noted. Skin: Skin warm and dry. Normal skin color. Normal skin turgor. No rashes/lesions/lacerations noted. Extremities: Pitting edema up to the knees noted. Patient wears compression socks due to varicose veins. Extremities exhibit normal range of motion. Extremities nontender. Neuro: Oriented X 3. No motor deficit. No sensory deficit. Reflexes normal. Results - Labs: Normal kidney function, complete blood count, cholesterol, PSA, and thyroid from recent blood work. - Imaging: Echocardiogram from September 15, 2022, followed up by cardiology. - Procedures: Coronary stent placement in September 2022.
[2024-11-16 10:09] VITALS: BP 118/58; PULSE 69; TEMP 36.4; O2SAT 96; BMI 28.0
--- OUTSIDE RECORDS SUMMARY | 2024-11-16 11:15 | XMS_ITS | Patient Health Record ---
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 Christopher (RETIRED) Jass BUTTS Primary Care Provid er Unavailable Jass Farfna Unavailable [phone] Reason For Referral No Information Medications Medication SIG (Take, Route, Fr equency, Duration) Notes Start Date End Date Status Multivitamin Adults Active Immunizations Vaccine Route Administration Date Status Comme nts Influenza Unknown 07/08/2020 Administered Social History Tobacco Use: Social History Observation Description Date Details (start date - stop date) Never Smoker NA - NA Tobacco Use/Smoking Question Answer Notes Patient is a nonsmoker Alcohol Screen Question Answer Notes Did you have a drink contain ing alcohol in the past year? Yes How often did you have a dri nk containing alcohol in the past year? 2 to 3 times a week (3 points) How many drinks did you have on a typical day when you were drinking in the past year? 1 or 2 drinks (0 point) Points 3 Interpretation Negative Section Notes: Nonsmoker and only occasiona l alcohol Problems Problem Type SNOMED Code ICD Code Onset Dates Problem Status W/U Status Risk Notes Problem [id number] Encounter for screening for malignant neoplasm of colon (Z12.11) Active confirmed Problem [id number] Preprocedural examination (Z01.818) Active confirmed Plan Of Treatment Pending Test Test Name Order Date Pathology 12/28/2020 Future Test Test Name Order Date COLONOSCOPY 12/06/2020 Insurance Providers Payer Name Payer Address Payer Phone Subscriber Number Group Number Insured Name Patient Relationship to Insured Coverage Start Date Coverage End Date [facility] [address] [facility] [phone] [id number] CAMI CALLE Self - patient is the insured Medical (General) History Medical History History ICD Code Denies VT,DM,CVA,Lung disease,renal dise ase ARTHRITIS--uses CBD oil tincture BID Reports a negative colonoscopy before 11 Surgical History Surgery Date(Month/Year) Bilateral inguinal hernia
== END 2024-11-16 10:45 | disposition home or self-care (01) ==
LOC: HO.HMCSH 09:57
PROVIDERS: PCP Internal Medicine; Visit Provider Physician Assistant Medical
DX: E66.3 Overweight (principal); Z68.28 Body mass index [BMI] 28.0-28.9, adult; M19.90 Unspecified osteoarthritis, unspecified site; G47.33 Obstructive sleep apnea (adult) (pediatric); E78.00 Pure hypercholesterolemia, unspecified; J30.2 Other seasonal allergic rhinitis; I25.10 Atherosclerotic heart disease of native coronary artery without angina pectoris

== ENCOUNTER → 2024-11-16 09:57 | Outpatient (BNVA) | payer MEDICARE, OTHER, SELFPAY | PROVIDERS: PCP Internal Medicine; Visit Provider Physician Assistant Medical | DX: E66.3 Overweight (principal); Z68.28 Body mass index [BMI] 28.0-28.9, adult; M19.90 Unspecified osteoarthritis, unspecified site; G47.33 Obstructive sleep apnea (adult) (pediatric); E78.00 Pure hypercholesterolemia, unspecified; J30.2 Other seasonal allergic rhinitis; I25.10 Atherosclerotic heart disease of native coronary artery without angina pectoris | CPT/HCPCS: 99202 ==

== ENCOUNTER 2024-12-06 09:15 | Outpatient (REF) | payer MEDICARE, OTHER, SELFPAY ==
[2024-12-06 09:29] LABS: MANUAL DIFF FLAG NO
--- OUTSIDE RECORDS SUMMARY | 2024-12-06 10:17 | XMS_ITS | Patient Health Record ---
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 Christopher (RETIRED) Jass BUTTS Primary Care Provid er Unavailable Jass Farfan Unavailable [phone] Reason For Referral No Information Medications Medication [...] Problem Status W/U Status Risk Notes Problem [id number] Encounter for screening for malignant neoplasm of colon (Z12.11) Active confirmed Problem [id number] Preprocedural examination (Z01.818) Active confirmed Plan Of Treatment Pending Test Test Name Order Date Pathology 12/28/2020 Future Test Test Name Order Date COLONOSCOPY 12/06/2020 Insurance Providers Payer Name Payer Address Payer Phone Subscriber Number Group Number Insured Name Patient Relationship to Insured Coverage Start Date Coverage End Date [facility] [address] [facility] [phone] [id number] CAMI CALLE Self - patient is the insured Medical (General) History Medical History History ICD Code Denies [place],DM,CVA,Lung disease,renal dise ase ARTHRITIS--uses CBD oil tincture BID Reports a negative colonoscopy before 11 Surgical History Surgery Date(Month/Year) Bilateral inguinal hernia
[2024-12-06 10:20] LABS: Basophils Percent Auto 0.6 % (0-2); Eosinophils Absolute Auto 0.1 X10*3/uL (0.0-0.4); Eosinophils Percent Auto 1.4 % (0-4); Hematocrit 43.8 % (42.0-52.0); Hemoglobin 14.6 g/dl (14.0-18.0); Imm Gran Abs Auto 0.01 X10*3/uL (0.00-0.03); Imm Gran Pct Auto 0.2 % (0.0-0.4); Lymphocytes Absolute Auto 1.5 X10*3/uL (1.2-4.9); Lymphocytes Percent Auto 30.2 % (20-40); Mean Corpuscular HGB Conc 33.3 g/dl (31.0-36.0); Mean Corpuscular Hemoglobin 29.3 pg (27.0-33.0); Mean Corpuscular Volume 87.8 fL (80.0-98.0); Mean Platelet Volume 12.1 fL (9.4-12.4); Monocytes Absolute Auto 0.5 X10*3/uL (0.1-1.2); Monocytes Percent Auto 10.5 % (2-11); Neutrophils Absolute Auto 2.8 x10*3/uL (2.0-8.3); Neutrophils Percent Auto 57.1 % (45-73); Platelet Count 172 X10*3/uL (160-400); Red Blood Count 4.99 X10*6/uL (4.60-5.80); Red Cell Distribution Width 13.2 % (11.0-16.0)
[2024-12-06 11:20] LABS: Estimated Average Glucose 114 mg/dL; Hemoglobin A1C 145.8148 umol/L; Hemoglobin A1c % 5.6 % (<6.0); Total Hemoglobin (HGBA1C) 3921.5744 umol/L
[2024-12-06 11:23] LABS: Folate 19.5 ng/mL (> or = 4.0); Vitamin B12 671 pg/mL (200-900)
[2024-12-06 11:33] LABS: Alanine Aminotransferase 28 U/L (0-40); Albumin Level 4.1 g/dL (3.5-5.0); Alkaline Phosphatase 78 U/L (39-117); Anion Gap 10 (12-20); Aspartate Amino Transferase 21 U/L (5-37); Bilirubin Direct 0.3 mg/dL (0.0-0.5); Bilirubin Total 0.8 mg/dL (0.0-1.0); Blood Urea Nitrogen 21 mg/dL (9-16); C Reactive Protein < 0.04 mg/dL (< or = 0.50); Carbon Dioxide 26 mmol/L (22-29); Chloride 109 mmol/L (96-108); Cholesterol 123 mg/dL (<200); Estimated Glomerular Filt Rate > 60; Glucose Fasting 93 mg/dL (60-99); HDL Cholesterol 42 mg/dL (>40); LDL Cholesterol Calculated 70 mg/dL (<100); Magnesium 2.1 mg/dL (1.6-2.6); Potassium 3.8 mmol/L (3.3-5.1); Sodium 141 mmol/L (135-145); TSH reflex Free T4 2.39 uIU/mL (0.32-4.0); Total Protein 6.6 g/dL (6.5-8.0); Triglycerides 59 mg/dL (<150); Vitamin D 25-OH Total 33.5 ng/mL (>30)
[2024-12-14 15:59] LABS: Vitamin B1 28 nmol/L (8-30)
== END 2024-12-06 09:16 | disposition home or self-care (01) ==
LOC: HO.LAB 09:15
PROVIDERS: PCP Internal Medicine; Visit Provider Physician Assistant Medical
DX: Z00.00 Encounter for general adult medical examination without abnormal findings (principal); Z13.1 Encounter for screening for diabetes mellitus
CPT/HCPCS: 36415; 80053; 80061; 80076; 82248; 82306; 82607; 82746; 83036; 83735; 84425; 84443; 85025; 86140

== ENCOUNTER → 2025-02-22 18:38 | Outpatient (BNV) | payer MEDICARE, OTHER, SELFPAY | PROVIDERS: PCP Internal Medicine; Visit Provider Radiology Diagnostic Radiology | DX: M48.02 Spinal stenosis, cervical region (principal) | CPT/HCPCS: 72141 ==

== ENCOUNTER 2025-02-22 19:31 | Outpatient (REF) | payer MEDICARE, OTHER, SELFPAY ==
--- NOTE | ~2025-02-22 | MR_ITS ---
EXAMINATION: MR CERVICAL SPINE WITHOUT CONTRAST CLINICAL INFORMATION: Cervical disc disease. COMPARISON: August 24, 2014. TECHNIQUE: MRI of the cervical spine was obtained using routine sequences without contrast. FINDINGS: Craniocervical junction is intact. No bone marrow STIR signal abnormality. Bone marrow inhomogeneity. Reverse curvature apex at C5. Multilevel disc desiccation and marginal osteophyte formation C3 T1. Grade 1 anterolisthesis C4-5. Grade 1 retrolisthesis C6-7. Cervical spinal cord signal is normal. There is focally deformity of the dorsal aspect of the thecal sac secondary to ligamentum flavum hypertrophy at C6-7 and C2-3. C2-3: Central disc osteophyte complex formation. Facet joint and ligamentum flavum hypertrophy. There is flattening of the cervical spinal cord . Bilateral, right greater than left neuroforamina narrowing. C3-4: Broad-based disc osteophyte complex formation abutting the cord. Facet joint hypertrophy. Bilateral neuroforamina narrowing/stenosis. C4-5: Broad-based disc osteophyte complex formation resulting in ventral deformity of the spinal cord. There is flattening of the cervical spinal cord. Bilateral neuroforamina narrowing on a degenerative basis. C5-6: Broad-based disc osteophyte complex formation abutting the cord. There is flattening of the cervical spinal cord. Facet joint hypertrophy. Bilateral neuroforamina stenosis. C6-7: Broad-based disc osteophyte complex formation resulting in cervical spinal cord deformity and CSF effacement. Bilateral neuroforamina stenosis on a degenerative basis. C7-T1: Broad-based disc osteophyte complex formation. Facet joint hypertrophy. No cord compression. Bilateral neuroforamina stenosis. No prevertebral compartment hematoma, mass or fluid collection. Flow-void signal within the main vessels is normal. Right vertebral artery is dominant. Normal position of the cerebellar tonsils. MR/MR cervical spine wo con IMPRESSION: [place] deformity. Multilevel spondylosis C3 C7 resulting in central spinal canal stenosis C5-6 without cord compression, cord edema and or myelopathy and multilevel bilateral neuroforamina stenosis. Electronically signed by: Hema Moore MD 02/23/2025 07:39 AM EDT
== END 2025-02-22 19:32 | disposition home or self-care (01) ==
LOC: HO.MRI 19:31
PROVIDERS: PCP Internal Medicine; Visit Provider Psychiatry & Neurology Neurology
DX: M50.90 Cervical disc disorder, unspecified, unspecified cervical region (principal); M54.12 Radiculopathy, cervical region
CPT/HCPCS: 72141

== ENCOUNTER 2025-03-15 08:20 | Outpatient (REF) | payer MEDICARE, OTHER, SELFPAY ==
--- NOTE | 2025-03-15 | EMG_ITS ---
Impression: Early carpal tunnel syndrome bilaterally. 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 Normal EMG of the left C5-T1 innervated muscles. Please see detailed neurophysiological report MTDD
== END 2025-03-15 08:21 | disposition home or self-care (01) ==
LOC: HO.NEURO 08:20
PROVIDERS: PCP Internal Medicine; Visit Provider Psychiatry & Neurology Neurology
DX: G56.03 Carpal tunnel syndrome, bilateral upper limbs (principal); G56.22 Lesion of ulnar nerve, left upper limb; G56.23 Lesion of ulnar nerve, bilateral upper limbs; M50.90 Cervical disc disorder, unspecified, unspecified cervical region
CPT/HCPCS: 95885; 95913

== ENCOUNTER → 2025-03-15 08:40 | Outpatient (BNV) | payer MEDICARE, OTHER, SELFPAY | PROVIDERS: PCP Internal Medicine; Visit Provider Psychiatry & Neurology Neurology | DX: G56.03 Carpal tunnel syndrome, bilateral upper limbs (principal) | CPT/HCPCS: 95913 ==

== ENCOUNTER 2025-04-06 10:50 | Outpatient (REF) | payer MEDICARE, OTHER, SELFPAY ==
--- OUTSIDE RECORDS SUMMARY | 2025-04-06 11:41 | XMS_ITS | Clinical Summary ---
Author Organization [facility] Address [address] [place] [phone] Phone Care Team Providers Care Magazine Filler Name Role Phone Jass White DO Primary Care Provider Allergies No known active allergies Medications ciprofloxacin-d examethasone (CIPRODEX) otic suspension 4 drops by Each Ear route 2 (two) times a day. 7.5 mL 2 Active Additional Information Patient not taking.Reported on 12/30/2023 aspirin 81 MG EC tablet 1 tablet Orally Once a day 3 Active atorvastatin (LIPITOR) 40 MG tablet Take 40 mg by mouth. 3 Active atorvastatin (LIPITOR) 80 MG tablet 1 tablet Orally Once a day Active clopidogrel (PLAVIX) 75 mg tablet Take 75 mg by mouth daily. Active nitroglycerin (NITROSTAT) 0.4 MG SL tablet 1 tablet Sublingual Every 5 minutes times 3 prn CP 3 Active omega 6-hpj-zbq-fish oil (FISH OIL) 1,000 mg (120 mg-180 mg) Cap 1 capsule. Acti ve ticagrelor (BRILINTA) 90 mg Tab Take 90 mg by mouth. 3 Active MULTIVITAMIN ORAL 1 capsule. Active Active Problems No known active problems Immunizations Immunization Administration Dates Next Due Influenza Quadrivalent MDCK Preservative Free IM 07/21/2021 Influenza Quadrivalent Preservative Free IM 07/09,08/30/2018 Influenza Quadrivalent w/ Preservative IM 2019,09/19/2016,09/11/2015 Influenza Trivalent Preservative Free IM 018 Influenza Trivalent w/ Preservative IM 3 Tdap 09/11/2015 Social History Tobacco Use Types Packs/Day Years Used Date Smoking Tobacco: Never Smokeless Tobacco: Never Tobacco Cessation:Counseling Given: Not Answered Education Answer Date Recorded Are you interested in more education? Not on jeff e 01/03/2023 Are you concerned about learning? Not on file 01/03/2023 No 01/03/2023 No 01/03/2023 Digital Access Answer Date Recorded No 02/01/2023 No 02/01/2023 Reliable internet access at home? Not on file 02/01/2023 Device with a working camera? Not on file Sex and Gender Information Value Date Recorded Sex Assigned at Not on file Legal Sex Male 2:51 PM EDT Gender Identity Not on file Sexual Orientation Not on file Last Filed Vital Signs Vital Sign Reading Time Taken Comments Blood Pressure 125/73 12/30/2023 11:56 AM EDT Pulse 67 12/30/2023 11:56 AM EDT Temperature 36.7 C (98 F) 12/30/2023 11:56 AM EDT Respiratory Rate 20 12/30/2023 11:56 AM EDT Oxygen Saturation 97% 12/30/2023 11:56 AM EDT Inhaled Oxygen Concentration - - Weight 93 kg (205 lb) 12/30/2023 11:56 AM EDT pe r pt Height - - Body Mass Index - - Plan of Treatment Health Maintenance Due Date Last Done Comments LIPID PANEL 1959 DEPRESSION SCREENING 1971 HEPATITIS C SCREENING 1977 COLOGUARD 01/16/2004 COLONOSCOPY 01/16/2004 COLORECTAL CANCER SCREENING 01/16/2004 FIT TEST 01/16/2004 FOBT 01/16/2004 SIGMOIDOSCOPY 01/16/2004 VIRTUAL COLONOSCOPY 01/16/2004 PNEUMOCOCCAL VACCINES (50+ years) (1 of 1 - PCV) 2009 ZOSTER VACCINES (2 of 2) 02/03/2024 12/09/2023 COVID-19 VACCINE (2023- season) 2024 06/09/2023, 06/20/2022, 01/09/2022, Additional history exists Adult Td,Tdap Booster 09/11/2025 09/11/2015 RSV VACCINE (1 - 1-dose 75+ series) 2034 SMOKING STATUS SCREENING (Once After 26 Yrs) Completed 12/30/2023 HEPATITIS A VACCINES Aged Out No long er eligible based on patient's age to complete this topic HIB VACCINES Aged Out No longer eligi ble based on patient's age to complete this topic MENINGOCOCCAL VACCINES (ACWY) Aged Out No longer eligible based on patient's age to complete this topic MENINGOCOCCAL VACCINES (B) Aged Out N o longer eligible based on patient's age to complete this topic Medical Devices Not on file Insurance O O O O O O O O O Care Teams Magazine Filler Relationship Specialty Start Date End Date Jass White DO [address] [place] [phone] PCP - General Internal Medicine 02/05/22 Additional Source Comments The information contained in this document represents components of the legal health record. It is not the complete legal health record.[facility]
[2025-04-06 12:15] LABS: Cholesterol 124 mg/dL (<200); HDL Cholesterol 45 mg/dL (>40); Triglycerides 66 mg/dL (<150)
== END 2025-04-06 10:51 | disposition home or self-care (01) ==
LOC: HO.LAB 10:50
PROVIDERS: PCP Internal Medicine; Visit Provider Internal Medicine Cardiovascular Disease
DX: I25.10 Atherosclerotic heart disease of native coronary artery without angina pectoris (principal); E78.5 Hyperlipidemia, unspecified
CPT/HCPCS: 36415; 80061; 86141

== ENCOUNTER 2025-04-19 09:22 | Outpatient (AMB) | payer MEDICARE, OTHER, SELFPAY ==
--- NOTE | 2025-04-19 09:35 | A.OFFVIS_ITS ---
Intake Visit Reasons: 2 Months/ Cervical Spond Allergies HAYFEVER Allergy (Mild, Uncoded 11/16/24 11:20) ITCHY EYES, RUNNY NOSE, ETC. HPI Comments Details: This is a 65-year-old right-handed man with a history of mild sleep apnea and the cervical disc herniation in 1997 who comes in with 2 month ?history of increasing numbness in the hands, especially in ulnar distribution intermittently, and some weakness in UE. Has no neck pain, but more crunching sounds in the neck. There was no neck injury. He no longer does heavy lifting at work. He does some planks and modified push ups daily to maintain his strength. His last ?MRI of the cervical spine in 2012 ?showed cervical spondylosis at multiple levels and a small herniated disc at C 6/7. Lyme titers were negative.Getting intermittent numbness in ulnar border of the hand L>R. Occasional twinges of pain. Rare numbness in first 3 fingers also. ?He has no complaints in his lower extremities and no weakness. No bladder or bowel control problems. [facility] Medical History (Updated 04/19/25 @ 09:52 by Alanna Loja MD) Atypical nevi Overweight with body mass index (BMI) of 28 to 28.9 in adult Exertional chest pain History of echocardiogram (~09/25/22) Atopic dermatitis Mild hypercholesterolemia Left varicocele Seasonal allergies CAD (coronary artery disease) [place] (obstructive sleep apnea) Arthritis Surgical History Stented coronary artery H/O right inguinal hernia repair Hx of left inguinal hernia repair H/O colonoscopy (~12/28/20) Family History Father No problems noted. Mother Afib Social History Alcohol intake: current Alcohol intake frequency: holidays/special occasions only Patient Tobacco Use Status: Never used Tobacco Review of Systems Const Details: ?Sleep:? Difficulty getting to sleepdenies.? Difficulty maintaining sleepdenies?.? Urge to move legsdenies.? Teeth grindingadmits.? Shouting or Kicking during sleep denies.? Abnormal behavior during sleepdenies.? Excessive sleepdenies.? Snoring admits.? Daytime sleepinessdenies. ???General/Constitutional:? Change in appetitedenies.? Chillsdenies.? Fatiguedenies.? Feverdenies.? Weight gaindenies.? Weight lossdenies. ???Ophthalmologic:? Blurred visiondenies.? Diminished visual acuitydenies. ???ENT:? Stuffinessdenies.? Decreased hearingdenies.? Dry mouthdenies.? Ear paindenies.? Nosebleeddenies.? Ringing in the earsdenies.? Sinus paindenies.? Sore throatde nies.? Swollen glandsdenies. ???Endocrine:? Cold intolerancedenies.? Excessive thirstdenies.? Frequent urinationdenies.? Heat intolerancedenies. ???Respiratory:? Shortness of breathdenies.? Chest paindenies.? Coughdenies. ???Breast:? Breast lumpdenies.? Nipple dischargedenies. ???Cardiovascular:? Chest pain at restdenies.? Chest pain with exertiondenies.? Claudicationdenies .? Dizzinessdenies.? Fluid accumulation in the legsdenies.? Irregular heartbeat denies.? Palpitationsdenies. ???Gastrointestinal:? Abdominal paindenies.? Constipationdenies.? Diarrheadenies.? Difficulty swallowingdenies.? Heartburndenies.? Nauseadenies.? Rectal bleedingdenies. ???Hematology:? Easy bruisingdenies.? Prolonged bleedingdenies. ???Genitourinary:? Frequent urinationdenies.? Urgencydenies.? Incontinencedenies.? Erectile Dysfunctiondenies. ???Musculoskeletal:? Neck painadmits.? Back paindenies.? Muscle achesdenies.? Painful jointsdenies.? Sciaticadenies.? WeaknessArms. ???Podiatric:? Difficulty walkingdenies.? Foot numbnessdenies. ???Neurologic:? Difficulty swallowingdenies.? Balance difficultydenies.? Coordinationnormal.? Difficulty speakingdenies.? Dizzinessdenies.? Faintingdenies.? Gait abnormality denies.? Headachedenies.? Loss of strengthdenies.? Loss of use of extremity denies.? Low back paindenies.? Memory lossdenies.? Seizuresdenies.? Ticsdenies.? Tingling/NumbnessBilateral hands and forearms.? Transient loss of visiondenies.? Tremordenies. ???Psychiatric:? Anxietydenies.? Auditory/visual hallucinationsdenies.? Delusionsdenies.? Depressed mooddenies.? Stressorsdenies.? Substance abusedenies.? Suicidal thoughtsdenies. Physical Exam Neuro Other: Neurological: Abnormal neurological findings:??Subtle left finger spread weakness, rest of the muscles are??very strong.?.?Mental Status:??alert and oriented X 3,?Normal attention, orientation, memory and affect.?Cranial Nerves:??Pupils are equal, round and reactive to light. Fundoscopy shows normal disc bilaterally. External occular muscles are intact. Visual amezcua are full, no ptosis. Face is symmetrical, no facial weakness or droop. Facial sensations are normal. Tongue protrudes in midline. Palate elevates symmetrically. Shoulder shrugging is normal..?Motor Examination:??Normal muscle tone, bulk and strength,?No atrophy or fasciculations,?No drift of the extended upper extremities,?Deep tendon reflexes are 2+?,?Plantars are flexor?.?Motor Strength:?Proximal Muscles (out of 5):5Distal Muscles (out of 5):5Neck Flexors (out of 5):5Neck Extensors (out of 5):5Deltoid (out of 5):5Biceps (out of 5):5Triceps (out of 5):5Serratus Anterior (out of 5):5Wrist Extensors (out of 5):5APB (out of 5):5Finger Spread (out of 5):5Ileopsoas (out of 5):5Quadriceps (out of 5):5Hamstrings (out of 5):5Tibialis Anterior (out of 5):5Peronei (out of 5):5EDB (out of 5):5Gastrocnemius (out of 5):5Straight Leg Raising:??90 degrees.?Sensory Exam:??Normal light touch, temperature, pinprick, vibration and joint-position sensations?,?Rhomberg sign is absent.?Coordination:??no ataxia,?no titubation,?nblecc-ge-rtuo, wgwn-ytoe-zxho test and rapid alternating movements were normal.?Gait Exam:??Within normal limits.?Cerebellar Signs:??Aaugzm-nw-dbck and peiu-nc-mjnf is normal,?no dysdiadochokinesia?.?Extrapyramidal System:??No tremor, rigidity with normal facial expressions,?No bradykinesia, no bradyphrenia. Normal arm swing and posture. No propulsion or retropulsion.?Speech:??Normal,?no dysphasia or dysarthria..? Mini Mental Status Exam: Level of Consciousness:??Alert.?Orientation:??Knows correct year, month, date, day and season,?Knows correct city, county and state. Knows correct location and floor.?Registration:??Able to register 3 objects.?Attention:??Serial 7's performed accurately.?Recall:??Able to recall 3 out of 3 objects.?Language:??Normal spontaneous speech, fluency, repetition,naming, comprehension, reading and writing.?Total Score:??30/30.? General Examination: GENERAL APPEARANCE:??normal,?in no acute distress.?HEAD:??normocephalic,?atraumatic.?EYES:??sclera non- icteric,?conjunctiva clear.?EARS:??auditory canal clear,?tympanic membrane intact, clear.?NOSE:??no lesions.?ORAL CAVITY:??gums normal,?mucosa moist,?no lesions.?THROAT:??clear.?NECK/THYROID:??no cervical lymphadenopathy,?thyroid normal,?neck supple, full range of motion,?no carotid bruit.?SKIN:??no rashes,?no significant birthmarks.?HEART:??S1, S2 normal,?no murmurs.?LUNGS:??clear anteriorly and posteriorly.?CHEST:??no gross rib deformity,?clear to auscultation.?BACK:??normal exam of spine.?EXTREMITIES:??no edema.?PERIPHERAL PULSES:??normal.?PSYCH:??alert, oriented,?cognitive function intact,?cooperative with exam.? Results Reviewed Results Reviewed: MRI C spine: [place] deformity of C spine. Multilevel spondylosis C3 C7 resulting in moderate central spinal canal stenosis C5-6 and C6-7 without cord c ompression, cord edema and or myelopathy. Multilevel bilateral neuroforamina stenosis. Nerve conduction EMG study of the upper extremities: Early carpal tunnel syndrome bilaterally. Mild compression palsy of the left ulnar nerve at the elbow. Normal EMG of the left C5-T1 innervated muscles Assessment & Plan Assessment & Plan (1) Cervical spondylosis with radiculopathy: Code(s): M47.22 - Other spondylosis with radiculopathy, cervical region Category: Medical (2) Ulnar neuropathy at elbow: Code(s): G56.20 - Lesion of ulnar nerve, unspecified upper limb Category: Medical (3) Carpal tunnel syndrome on both sides: Code(s): G56.03 - Carpal tunnel syndrome, bilateral upper limbs Category: Medical Plan Neurosurgical opinion at patient request. No intervention recommended for early CTS . Avoid pressure at elbows. Orders: Referrals Neurosurgery Referral M47.22 - Other spondylosis with radiculopathy, cervical region Coding Level of Care Code Est Pt Level 4 (95796) Diagnoses Cervical spondylosis with radiculopathy M47.22 Ulnar neuropathy at elbow G56.20 Carpal tunnel syndrome on both sides G56.03
--- OUTSIDE RECORDS SUMMARY | 2025-04-19 09:46 | XMS_ITS | Clinical Summary ---
Author Organization [facility] Address [address] [place] [phone] Phone Care Team Providers Care Diet Kitchen Cook Name Role Phone Jass White DO Primary [...] times 3 prn CP 3 Active omega 7-ecq-keq-fish oil (FISH OIL) 1,000 mg (120 mg-180 mg) Cap 1 capsule. Acti ve ticagrelor (BRILINTA) 90 mg Tab Take 90 mg by mouth. 3 Active MULTIVITAMIN ORAL 1 capsule. Active Active Problems No known active problems Immunizations Immunization Administration Dates Next Due INFLUENZA, SPLIT VIRUS, TRIVALENT PF 09/14/2017 INFLUENZA, SPLIT VIRUS, TRIV ALENT W/ PRESERVATIVE IM 09/16/2012 Influenza Quadrivalent MDCK Preservative Free IM 07/21/2021 Influenza Quadrivalent Preservative Free IM 07/09,08/30/2018 Influenza Quadrivalent w/ Preservative IM 2019,09/19/2016,09/11/2015 Tdap 09/11/2015 Social History Tobacco Use Types [...] O O O O O O O HMO Care Teams Diet Kitchen Cook Relationship Specialty Start Date End Date Jass White DO [address] [place] [id number] PCP - General Internal Medicine 02/05/22 Additional Source Comments The information contained in this document represents components of the legal health record. It is not the complete legal health record.[facility]
== END 2025-04-19 09:58 | disposition home or self-care (01) ==
LOC: HO.HSM 09:23
PROVIDERS: Family Provider Neurological Surgery; PCP Internal Medicine; Visit Provider Psychiatry & Neurology Neurology
DX: M47.22 Other spondylosis with radiculopathy, cervical region (principal); G56.20 Lesion of ulnar nerve, unspecified upper limb; G56.03 Carpal tunnel syndrome, bilateral upper limbs
CPT/HCPCS: 99214

== ENCOUNTER → 2025-04-19 09:22 | Outpatient (BNVA) | payer MEDICARE, OTHER, SELFPAY | PROVIDERS: Family Provider Neurological Surgery; PCP Internal Medicine; Visit Provider Psychiatry & Neurology Neurology | DX: G56.03 Carpal tunnel syndrome, bilateral upper limbs (principal); G56.22 Lesion of ulnar nerve, left upper limb; G47.22 Circadian rhythm sleep disorder, advanced sleep phase type | CPT/HCPCS: 99212 ==

== ENCOUNTER 2025-04-25 13:40 | Outpatient (AMB) | payer MEDICARE, OTHER, SELFPAY | END 2025-04-25 14:01 | disposition home or self-care (01) | LOC: HO.HMGAL 13:40 | PROVIDERS: PCP Internal Medicine; Visit Provider Registered Nurse Emergency | DX: J30.89 Other allergic rhinitis (principal) | CPT/HCPCS: 95117; 95165 ==

== ENCOUNTER 2025-04-26 09:51 | Outpatient (AMB) | payer MEDICARE, OTHER, SELFPAY ==
--- NOTE | 2025-04-26 10:01 | A.SPINEOV_ITS ---
Vital Signs 04/26/25 10:02 Height 6 ft 2 in Weight 218 lb BMI 28.0 Intake Visit Reasons: neck pain Intake Note: Mr. Munoz is here today for numbness of hands. Business Office Representative Required: No Allergies HAYFEVER Allergy (Mild, Uncoded 11/16/24 11:20) ITCHY EYES, RUNNY NOSE, ETC. Physical Exam Vital Signs: BMI result Body Mass Index 28.0 Assessment & Plan Assessment & Plan (1) [place] neck deformity of cervical spine: Code(s): M43.8X2 - Other specified deforming dorsopathies, cervical region Category: Medical Plan Dear Freedom White, Thank you for referring Dustin to our office today. 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 He reports this has been ongoing since 1997 when he first had an MRI of the cervical spine. He has been managing his symptoms conservatively since 1997 with at home stretching and exercise. Unfortunately, the issue has now progressed to the point where he will experience fairly significant arm numbness and hand cramping with increased upper extremity activity. Based on how he describes this, it sounds like it is now affecting his activities of daily living / work. 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 When describing the numbness and cramping that he experiences, he states that it starts somewhere above the elbow, travels through the cubital tunnel, down toward his pinky finger. This occurs bilaterally, but appears to be affecting the right side more. Fortunately he reports he is experiencing little to no pain associated with this in rates his pain as a 1/10. He attributes this largely to his exercise / stretching routine, and states that if he does not perform this daily routine he will be in pain. He denies any significant posterior neck pain or shooting pain accompanied by the feeling of cramping and numbness in his upper extremities. He denies any issues with balance, walking, or falls. He denies any issues with dexterity in his able to zip upset appears in button buttons without issue. No bowel/bladder issues reported. He has been to physical therapy for this issue, however did not find it particularly helpful. He has also attempted acupuncture. He is cu rrently taking 800 mg of ibuprofen at night to help mitigate his symptoms. He denies worsening nocturnal symptoms, and did have an EMG completed by our colleagues in Neurology, which only showed mild carpal tunnel syndrome and mild left ulnar neuropathy. PMH: Sleep apnea, coronary stent placement 09/2022, osteoarthritis. Social hx: Patient does not smoke, reports no substance use. Medications: Atorvastatin, Clopidogrel, Aspirin, Fish oil. Allergies: NKDA Physical exam: The patient has 5/5 strength in his upper and lower extremities. He ambulates well and rises from a seated position without difficulty. He uses no assistive devices to ambulate. He is able to get up onto the examination table without issue. His reflexes are 2+ intact. He reports no sensational deficits to light touch on examination. (-) Sood's, (-) clonus, (-) bilateral straight leg raise. Imaging review: MRI of the cervical spine completed here at [facility] shows diffuse spondylosis of the cervical spine with notable cervical kyphosis in absence of lorsosis. This is most consistent with swan neck deformity. The worst affected level by far as the C6-7 disc space which is severely degenerated causing moderate-severe central canal and severe bilateral foraminal stenosis at this level. There is no evidence of T2 signal change / myelomalacia. Impression: Dustin is a pleasant 65-year-old male who comes in for evaluation of bialteral arm numbness and hand cramping. This has been ongoing since 1997, and has been thus far managed conservatively. I believe this is most likely occ urring as a result of the severe compression seen at C6-7. Thankfully the bulk of the pain symptoms that the patient would likely otherwise be experiencing seem to be mitigated by his daily stretching/exercise routine. Given this, the patient does report that subjectively his symptoms are worsening, and he is interested in surgical intervention to help resolve his numbness, tingling, cramping, and pain. Based on the patients symptoms I do not believe a multi- level swan neck deformity correction would be particularly beneficial for this patient, but we did discuss the possibility of C6-7 ACDF, which the patient is interested in pursuing. I believe the next best steps would be to send him for a CT scan of the cervical spine to evaluate for osteophyte growth / autofusion, then have him follow up in [address] Donnelly for subsequent examination and review of CT imaging. Thank you for allowing us to care for your patient. The total time spent with this visit with this patient was 45 minutes reviewing history, physical exam, MRI imaging review, and implementation of treatment plan or further diagnostic testing Iam Donnelly MD,PhD [facility] Orders: Orders CT cervical spine wo IV con Today M54.2 - Cervicalgia Coding Level of Care Code New Pt Level 4 (44483) Diagnoses [place] neck deformity of cervical spine M43.8X2
[2025-04-26 10:02] VITALS: BMI 28.0
--- OUTSIDE RECORDS SUMMARY | 2025-04-26 10:41 | XMS_ITS | Clinical Summary ---
Author Organization [facility] Address [address] [place] [phone] Phone Care Team Providers Care Fleet Dispatch Manager Name Role Phone Jass White DO Primary [...] times 3 prn CP 3 Active omega 5-ulh-rcb-fish oil (FISH OIL) 1,000 mg (120 mg-180 [...] O O O O HMO Care Teams Fleet Dispatch Manager Relationship Specialty Start Date End Date Jass White DO [address] [place] [phone] PCP - General Internal Medicine 02/05/22 Additional Source Comments The information contained in this document represents components of the legal health record. It is not the complete legal health record.[facility]
== END 2025-04-26 10:44 | disposition home or self-care (01) ==
LOC: HO.HNS 09:51
PROVIDERS: PCP Internal Medicine; Referring Provider Psychiatry & Neurology Neurology; Visit Provider Physician Assistant
DX: M43.8X2 Other specified deforming dorsopathies, cervical region (principal)
CPT/HCPCS: 99204

== ENCOUNTER → 2025-04-26 09:51 | Outpatient (BNVA) | payer MEDICARE, OTHER, SELFPAY | PROVIDERS: PCP Internal Medicine; Referring Provider Psychiatry & Neurology Neurology; Visit Provider Physician Assistant | DX: M43.8X2 Other specified deforming dorsopathies, cervical region (principal) | CPT/HCPCS: 99202 ==

== ENCOUNTER 2025-05-03 11:20 | Outpatient (REF) | payer MEDICARE, OTHER, SELFPAY ==
[2025-04-26 10:42] VITALS: BP 100/60; BP 118/72; BP 128/66
--- NOTE | ~2025-05-03 | CT_ITS ---
EXAMINATION: CT CERVICAL SPINE WITHOUT CONTRAST CLINICAL INFORMATION: Cervicalgia COMPARISON: Correlated to MRI dated February 22, 2025. TECHNIQUE: Contiguous axial images through the cervical spine using 2 mm collimation with bone and soft tissue algorithm. Sagittal and coronal reformatted images acquired. DLP: [address] examination was performed using dose optimization techniques as appropriate, variously including the following: *Automated exposure control *Adjustment of mA and/or kV according to patient size (this includes techniques or standardized protocols for targeted exams where dose is matched to indication/reason for exam; i.e. extremities or head) *Use of iterative reconstruction technique FINDINGS: Craniocervical junction is intact with normal alignment between the occipital condyles and lateral masses of C1. There is marginal osteophyte formation and decreased intervertebral disc height, subchondral cyst formation and endplate sclerosis at C3-4, C5-6, C6-7, C7-T1 and to a lesser extent C4-5. There is a reverse curvature apex at C4-5. There is facet joint hypertrophy at C2-3, C3-4, C4-5 levels. There is no gross malalignment between the vertebral bodies or the facet joints. C1 is intact. C2 is intact. C3 is intact. C4 is intact. C5 is intact. C6 is intact. C7 is intact. No prevertebral compartment hematoma. There is central spinal canal stenosis at C5-6, C6-7 levels. Tympanic cavities and mastoid cells are aerated. Calcified plaques in the cavernous segments of the ICAs. Focal calcifications in the carotid bulbs. The thyroid gland is not enlarged. CT/CT cervical spine wo IV con IMPRESSION: Multilevel cervical spondylosis C3 T1 resulting in [place] deformity apex at C4-5 and central spinal canal stenosis at C6-7 and to a lesser extent C5-6. Fleischner guidelines were followed. Electronically signed by: Hema Moore MD 05/03/2025 12:05 PM EDT
--- OUTSIDE RECORDS SUMMARY | 2025-05-03 12:12 | XMS_ITS | Clinical Summary ---
Author Organization [facility] Address [address] [place] [phone] Phone Care Team Providers Care Chute Loader Name Role Phone Jass White DO Primary [...] times 3 prn CP 3 Active omega 9-ztr-hed-fish oil (FISH OIL) 1,000 mg (120 mg-180 [...] O O O O HMO Care Teams Chute Loader Relationship Specialty Start Date End Date Jass White DO [address] [place] [phone] PCP - General Internal Medicine 02/05/22 Additional Source Comments The information contained in this document represents components of the legal health record. It is not the complete legal health record.[facility]
== END 2025-05-03 11:21 | disposition home or self-care (01) ==
LOC: HO.CT 11:20
PROVIDERS: Visit Provider Physician Assistant
DX: M54.2 Cervicalgia (principal)
CPT/HCPCS: 72125

== ENCOUNTER → 2025-05-03 11:21 | Outpatient (BNV) | payer MEDICARE, OTHER, SELFPAY ==
[2025-04-26 10:42] VITALS: BP 100/60; BP 118/72; BP 128/66
== END ==
PROVIDERS: Visit Provider Radiology Diagnostic Radiology
DX: M47.12 Other spondylosis with myelopathy, cervical region (principal)
CPT/HCPCS: 72125

== ENCOUNTER 2025-05-24 14:20 | Outpatient (AMB) | payer MEDICARE, OTHER, SELFPAY ==
[2025-04-26 10:42] VITALS: BP 100/60; BP 118/72; BP 128/66
--- NOTE | 2025-05-24 14:23 | A.SPINEOV_ITS ---
Intake Visit Reasons: 4 weeks f/up Intake Note: Mr. Munoz is here today for a 4 week F/u. Cleaner Laboratory Equipment Required: No Allergies HAYFEVER Allergy (Mild, Uncoded 11/16/24 11:20) ITCHY EYES, RUNNY NOSE, ETC. Assessment & Plan Assessment & Plan (1) Ulnar nerve entrapment at elbow: Code(s): G56.20 - Lesion of ulnar nerve, unspecified upper limb Category: Medical Plan Dear colleague, On 05/24/2025, I saw for follow-up Dustin Munoz after obtaining a CT of the cervical spine. He was previously seen by physician visitor services information assistant Sagar for bilateral arm numbness, hand cramping and weakness. MRI of the cervical spine showed a cervical deformity and severe bilateral C7 foraminal stenosis. He thought the symptoms could be related to the bilateral C7 nerve root compression. He comes in for review of the CT of the cervical spine and to discuss further plan. I repeated the history and he states that he has tingling starting at the elbow going to the 5th and 4th finger bilaterally, with the left side is more affected than the right side. He has numbness of the pinky and half of the ring finger, which is classic for an ulnar nerve compression. Tinel is positive over the bilateral cubital tunnel. There is a trace of weakness of the muscular adductor pollicis on the left. An EMG showed a mild left ulnar neuropathy and beginning of a right ulnar neuropathy, which is in agreement with the clinical picture with the left side is more affected than the right side. I think this patient is suffering from a bilateral ulnar neuropathy instead of a cervical radiculopathy. I offered him a left ulnar decompression. He is on blood thinners for another 2 months therefore we decided to schedule after the blood thinners has been discontinued. The date will be 08/10/2025. I spent 30 minutes in his consult to review imaging, repeat history and discussing plan of care. Zacarias Donnelly MD, PhD Spine Fellowship Trained Neurosurgeon Director, [facility] Coding Level of Care Code Est Pt Level 4 (64972) Diagnoses Ulnar nerve entrapment at elbow G56.20
--- OUTSIDE RECORDS SUMMARY | 2025-05-24 18:05 | XMS_ITS | Clinical Summary ---
Author Organization [facility] Address [address] [place] [phone] Phone Care Team Providers Care Domestic Travel Consultant Name Role Phone Jass White DO Primary [...] times 3 prn CP 3 Active omega 9-odp-gow-fish oil (FISH OIL) 1,000 mg (120 mg-180 [...] ZOSTER VACCINES (2 of 2) 02/03/2024 12/09/2023 INFLUENZA VACCINE (#1) 2025 , 07/21/2021, 06/10/2020, Additional history exists COVID-19 VACCINE ( season) 2025 06/09/2023, 06/20/2022, 01/09/2022, Additional history exists Adult [...] O O O O O Care Teams Domestic Travel Consultant Relationship Specialty Start Date End Date Jass White DO [address] [place] [id number] PCP - General Internal Medicine 02/05/22 Additional Source Comments The information contained in this document represents components of the legal health record. It is not the complete legal health record.[facility]
== END 2025-05-24 15:12 | disposition home or self-care (01) ==
LOC: HO.HNS 14:21
PROVIDERS: PCP Internal Medicine; Visit Provider Neurological Surgery
DX: G56.20 Lesion of ulnar nerve, unspecified upper limb (principal)
CPT/HCPCS: 99214

== ENCOUNTER → 2025-05-24 14:20 | Outpatient (BNVA) | payer MEDICARE, OTHER, SELFPAY ==
[2025-04-26 10:42] VITALS: BP 100/60; BP 118/72; BP 128/66
== END ==
PROVIDERS: PCP Internal Medicine; Visit Provider Neurological Surgery
DX: Z71.2 Person consulting for explanation of examination or test findings (principal); G56.22 Lesion of ulnar nerve, left upper limb
CPT/HCPCS: 99212

== ENCOUNTER 2025-05-24 15:29 | Outpatient (AMB) | payer MEDICARE, OTHER, SELFPAY ==
[2025-04-26 10:42] VITALS: BP 100/60; BP 118/72; BP 128/66
== END 2025-05-24 15:36 | disposition home or self-care (01) ==
LOC: HO.HMGAL 15:29
PROVIDERS: PCP Internal Medicine; Visit Provider Registered Nurse Emergency
DX: J30.89 Other allergic rhinitis (principal)
CPT/HCPCS: 95117; 95165

== ENCOUNTER 2025-06-28 12:43 | Outpatient (AMB) | payer MEDICARE, OTHER, SELFPAY ==
[2025-04-26 10:42] VITALS: BP 100/60; BP 118/72; BP 128/66
--- OUTSIDE RECORDS SUMMARY | 2025-06-28 17:34 | XMS_ITS | Clinical Summary ---
Author Organization [facility] Address [address] [place] [phone] Phone Care Team Providers Care Client Advocate Name Role Phone Jass White DO Primary Care Provider [phone] Allergies No known active allergies Medications ciprofloxacin-d [...] times 3 prn CP 3 Active omega 5-tfa-nzg-fish oil (FISH OIL) 1,000 mg (120 mg-180 [...] O O O O O Care Teams Client Advocate Relationship Specialty Start Date End Date Jass White DO [address] [place] [id number] PCP - General Internal Medicine 02/05/22 Additional Source Comments The information contained in this document represents components of the legal health record. It is not the complete legal health record.[facility]
== END 2025-06-28 12:46 | disposition home or self-care (01) ==
LOC: HO.HMGAL 12:43
PROVIDERS: PCP Internal Medicine; Visit Provider Registered Nurse Emergency
DX: J30.89 Other allergic rhinitis (principal)
CPT/HCPCS: 95117; 95165

== ENCOUNTER 2025-07-21 11:24 | Outpatient (AMB) | payer MEDICARE, OTHER, SELFPAY ==
[2025-07-13 13:15] VITALS: BP 100/60; BP 118/72; BP 128/66
--- NOTE | 2025-07-21 11:37 | HO.SPINEOV ---
Intake Visit Reasons: has questions regarding sx Intake Note: Mr. Munoz is here today to Discuss Surgery. Sports Medicine [place] Required: No Allergies HAYFEVER Allergy (Mild, Uncoded 11/16/24 11:20) ITCHY EYES, RUNNY NOSE, ETC. Assessment & Plan Assessment & Plan (1) Cervical spondylosis with radiculopathy: Code(s): M47.22 - Other spondylosis with radiculopathy, cervical region Category: Medical Plan On 07/21, I saw Dustin Munoz with some additional preoperative questions. He is scheduled to undergo an ACDF C6-7 on 08/10/2025. All questions were answered satisfactorily. I spent 15 minutes in his consult. Zacarias Donnelly MD, PhD Spine Fellowship Trained Neurosurgeon Director, [facility] Coding Level of Care Code Est Pt Level 2 (86166) Diagnoses Cervical spondylosis with radiculopathy M47.22
--- OUTSIDE RECORDS SUMMARY | 2025-07-21 17:41 | XMS_ITS | Clinical Summary ---
Author Organization [facility] Address [address] [place] [phone] Phone Care Team Providers Care Snuff Drier Name Role Phone Jass White DO Primary [...] times 3 prn CP 3 Active omega 5-qyb-auo-fish oil (FISH OIL) 1,000 mg (120 mg-180 [...] on patient's age to complete this topic IPV VACCINES Aged Out No longer eligi ble based on patient's age to complete this topic MENINGOCOCCAL VACCINES (ACWY) Aged Out No longer eligible based on patient's age to complete this topic MENINGOCOCCAL VACCINES (B) Aged Out N o longer eligible based on patient's age to complete this topic Medical Devices Not on file [facility] O Care Teams Snuff Drier Relationship Specialty Start Date End Date Jass White DO [address] [place] [id number] PCP - General Internal Medicine 02/05/22 Additional Source Comments The information contained in this document represents components of the legal health record. It is not the complete legal health record.[facility]
== END 2025-07-21 13:13 | disposition home or self-care (01) ==
LOC: HO.HNS 11:25
PROVIDERS: PCP Internal Medicine; Visit Provider Neurological Surgery
DX: M47.22 Other spondylosis with radiculopathy, cervical region (principal)
CPT/HCPCS: 99212

== ENCOUNTER → 2025-07-21 11:24 | Outpatient (BNVA) | payer MEDICARE, OTHER, SELFPAY ==
[2025-07-13 13:15] VITALS: BP 100/60; BP 118/72; BP 128/66
== END ==
PROVIDERS: PCP Internal Medicine; Visit Provider Neurological Surgery
DX: M47.22 Other spondylosis with radiculopathy, cervical region (principal); Z01.818 Encounter for other preprocedural examination
CPT/HCPCS: 99212

== ENCOUNTER 2025-07-24 15:10 | Outpatient (AMB) | payer MEDICARE, OTHER, SELFPAY ==
[2025-07-13 13:15] VITALS: BP 100/60; BP 118/72; BP 128/66
--- NOTE | 2025-07-24 15:13 | MHC.OFFVIS ---
Vital Signs 07/24/25 15:14 Height 6 ft 2 in Weight 213 lb 13.574 oz BMI 27.5 BP 120/74 Blood Pressure Location Lt brachial Position Sitting Pulse 52 Intake Visit Reasons: 1 year fu Intake Note: 1 year follow-up with ekg feeling good Underwriting Technician Required: No Allergies HAYFEVER Allergy (Mild, Uncoded 11/16/24 11:20) ITCHY EYES, RUNNY NOSE, ETC. Medication List - Last Reconciled 07/24/25 by Yg Rodriguez MD aspirin (Adult Aspirin Regimen) 81 mg PO DAILY atorvastatin 80 mg PO DAILY clopidogrel 75 mg PO DAILY multivitamin 1 tab PO DAILY omega 6-hdk-dkw-fish oil 100-160-1,000 mg (Fish Oil) caps PO HPI Comments Details: Dustin comes for follow-up. He has been doing very well from cardiac perspective. He is planned to undergo cervical surgery in near future for cervical nerve impingement. He has no cardiac symptoms. He said he exercises and hikes and has high level of activity without any chest pain. His recent LDL was in his mid 60s. He is currently still taking dual antiplatelet therapy. [facility] Medical History (Updated 07/24/25 @ 15:30 by Yg Rodriguez MD) Exertional chest pain Atypical nevi Overweight with body mass index (BMI) of 28 to 28.9 in adult History of echocardiogram (~09/25/22) Atopic dermatitis Mild hypercholesterolemia Left varicocele Seasonal allergies CAD (coronary artery disease) CARLTON (obstructive sleep apnea) Arthritis Surgical History Stented coronary artery H/O right inguinal hernia repair Hx of left inguinal hernia repair H/O colonoscopy (~12/28/20) Family History Father No problems noted. Mother Afib Social History Alcohol intake: current Alcohol intake frequency: holidays/special occasions only Patient Tobacco Use Status: Never used Tobacco Review of Systems Const Denies chills, Denies fatigue, Denies fever(s), Denies frequent falls, Denies weakness, Denies weight gain and Denies weight loss ENT Denies dizziness Card Denies chest pain, Denies leg edema, Denies lightheadedness, Denies palpitations, Denies dyspnea, Denies dyspnea on exertion, Denies orthopnea and Denies other (loss of consciousness) Resp Denies cough, Denies dyspnea and Denies dyspnea on exertion GI Denies hematochezia and Denies change in stool character Musc Denies abnormal gait, Denies muscle weakness, Denies numbness, Denies radiating pain into limb and Denies tingling Neuro Denies Abnormal speech present, Denies abnormal gait, Denies dizziness, Denies frequent falls, Denies numbness, Denies tingling and Denies weakness Endo Denies fatigue and Denies palpitations Physical Exam Vital Signs: Last Vital Signs Pulse 52 07/24/25 15:14 BP 120/74 07/24/25 15:14 BMI result Body Mass Index 27.5 Const General: cooperative, comfortable, no acute distress, well developed, alert and awake Nutritional Appearance: average body habitus Orientation/consciousness: patient oriented x3 Limitations: no limitations Neck Neck: Yes trachea midline, Yes supple and Yes no JVD Chest Chest palpation & inspection: abnormal inspection of the chest other (Mild pectus excavatum) Resp Effort & Inspection: normal respiratory effort Auscultation: clear to auscultation bilaterally Cardio Jugular venous distension: no JVD Palpation: normal PMI Rate: regular rate Rhythm: regular rhythm Heart sounds: S1 normal heart sound present, S2 normal heart sound present, no click, no gallops, no murmurs and no rubs Bruits: no carotid bruits GI Auscultation: normal bowel sounds Neuro General: patient oriented x3 and no focal motor deficits Speech: No Abnormal speech present Extrem General: Yes no clubbing, cyanosis or edema Psych Appearance: grossly normal Office Procedures EKG Details: EKGs shows sinus bradycardia with sinus arrhythmia [id number], Complete Assessment & Plan Assessment & Plan (1) CAD (coronary artery disease): Comment: Drug-eluting stent, proximal LAD for crescendo angina in 09/2022 Code(s): I25.10 - Atherosclerotic heart disease of [place] coronary artery without angina pectoris Category: Medical Plan: CAD with prior drug-eluting stent to paroxysmal LAD for exertional angina. Since then he has had no recurrent symptoms. Doing very well with high functional capacity. No indication for dual antiplatelet therapy at this point time. Plavix can be discontinued. Continue low-dose aspirin therapy for life. Continue high-intensity statin therapy with well optimized LDL. Continue to maintain activity level as tolerated. Will follow up in 1 year's time. (2) Preoperative cardiovascular examination: Code(s): Z01.810 - Encounter for preprocedural cardiovascular examination Plan: Preoperative cardiovascular risk stratification for noncardiac surgery with intermediate risk surgery. Currently has excellent physical capacity of more than 4 Mets. Does not require any other preoperative cardiovascular workup. His Plavix has been discontinued. I would continue statin therapy in the perioperative time. Aspirin can be withheld lead surgeon's discretion. Resume as soon as possible after surgery. He is currently optimized to undergo surgery with low risk for perioperative cardiovascular morbidity mortality. Will follow up in the clinic in 1 year's time, sooner PRN. Thank you for allowing me to partake in his care Medications: Discontinued clopidogrel Discontinued Reason: No Longer Medically Relevant 75 mg PO DAILY 90 tabs 3RF Coding Level of Care Code Est Pt Level 4 (42781) Complex EM visit Add On G2211 Diagnoses CAD (coronary artery disease) I25.10 Preoperative cardiovascular examination Z01.810 CPT Codes EKG - CPT: 19568-[id number], Complete ([id number])
[2025-07-24 15:14] VITALS: BP 120/74; PULSE 52; BMI 27.5
== END 2025-07-24 15:29 | disposition home or self-care (01) ==
LOC: HO.HCS 15:11
PROVIDERS: PCP Internal Medicine; Visit Provider Internal Medicine Cardiovascular Disease
DX: I25.10 Atherosclerotic heart disease of native coronary artery without angina pectoris (principal); Z01.810 Encounter for preprocedural cardiovascular examination
CPT/HCPCS: 93010; 99214; G2211

== ENCOUNTER → 2025-07-24 15:10 | Outpatient (BNVA) | payer MEDICARE, OTHER, SELFPAY ==
[2025-07-13 13:15] VITALS: BP 100/60; BP 118/72; BP 128/66
== END ==
PROVIDERS: PCP Internal Medicine; Visit Provider Internal Medicine Cardiovascular Disease
DX: Z01.810 Encounter for preprocedural cardiovascular examination (principal); I25.10 Atherosclerotic heart disease of native coronary artery without angina pectoris; I10 Essential (primary) hypertension; Z95.5 Presence of coronary angioplasty implant and graft
CPT/HCPCS: 93005; 99212

== ENCOUNTER 2025-08-10 06:01 | Day surgery (SDC) | payer MEDICARE, OTHER, SELFPAY ==
--- OUTSIDE RECORDS SUMMARY | 2025-07-05 15:50 | XMS_ITS | Clinical Summary ---
Author Organization [facility] Address [address] [place] [phone] Phone Care Team Providers Care Knife Finisher Name Role Phone Jass White DO Primary [...] times 3 prn CP 3 Active omega 7-kap-gco-fish oil (FISH OIL) 1,000 mg (120 mg-180 [...] O O O O O Care Teams Knife Finisher Relationship Specialty Start Date End Date Jass White DO [address] [place] [phone] PCP - General Internal Medicine 02/05/22 Additional Source Comments The information contained in this document represents components of the legal health record. It is not the complete legal health record.[facility]
[2025-07-13 13:15] VITALS: BP 100/60; BP 118/72; BP 128/66
[2025-07-27 10:14] VITALS: BP 100/65; PULSE 71; RESP 17; O2SAT 97; BMI 27.6
--- NOTE | 2025-07-27 10:27 | HO.ANESPROP2 ---
Documented by User: Susan Bartlett NP 07/27/25 10:36 HPI - Anesthesia Eval Consult details Narrative: 65yo M for C6-7 Ant Cerv Discectomy w/ fusion, 08/10/25 Cardiac optimized. Follows [facility] Cardiology for CAD s/p stent 2022. Per 07/2025 office visit, high activity tolerance without cardiac symtpoms. Plavix d/c'd. Continues on asa (ok'd to hold for surgery) and statin. No recent illness No CP/SOB with exercise CARLTON: mouthguard PMFSH Active Problems Active Problems: All Active Problems Ulnar nerve entrapment at elbow (Acute) [place] neck deformity of cervical spine (Acute) Cervicalgia (Acute) Carpal tunnel syndrome on both sides (Acute) Ulnar neuropathy at elbow (Acute) Cervical spondylosis with radiculopathy (Acute) Atypical nevi (Acute) Overweight with body mass index (BMI) of 28 to 28.9 in adult (Acute) Atopic dermatitis (Acute) Arthritis (Acute) CARLTON (obstructive sleep apnea) (Acute) Mild hypercholesterolemia (Acute) Left varicocele (Acute) Seasonal allergies (Acute) CAD (coronary artery disease) (Acute) Past Medical History Medical History Osteoarthritis Exertional chest pain Atypical nevi Overweight with body mass index (BMI) of 28 to 28.9 in adult History of echocardiogram (~09/25/22) Atopic dermatitis Mild hypercholesterolemia Left varicocele Seasonal allergies CAD (coronary artery disease) CARLTON (obstructive sleep apnea) Arthritis Family History Family History Father No problems noted. Mother Afib Family history of problems with anesthesia: No Surgical History Surgical History Stented coronary artery (~09/2022) H/O right inguinal hernia repair Hx of left inguinal hernia repair H/O colonoscopy (~12/28/20) History of Problems with Anesthesia: No Social History Social History Alcohol intake: current Alcohol intake frequency: holidays/special occasions only Patient Tobacco Use Status: Never used Tobacco Use of substances other than those prescribed or required for medical reasons: No Have you been hit, kicked, punched, or otherwise hurt by someone within the past year? If so, by whom?: No Are you DNR?: No Advance Directives: No Advance Directives Information Provided: Yes Advance Directives on File: No Meds Allergies Allergy/AdvReac Type Severity Reaction Status Date / Time HAYFEVER Allergy Mild ITCHY Uncoded 11/16/24 11:20 EYES, RUNNY NOSE, ETC. Home Medications ?Medication ?Instructions ?Recorded ?Confirmed ?Last Taken ?Type multivitamin 1 tab PO DAILY 12/25/20 07/27/25 08/09/25 History aspirin 81 mg tablet,delayed 81 mg PO DAILY 09/17/22 07/27/25 08/08/25 History release (Adult Aspirin Regimen) Held on 08/10/25. Instructions: Resume on 08/17/25. You may resume 1 week after surgery omega 5-ltk-bbv-fish oil 100 1 cap PO 3XW 11/16/24 07/27/25 07/19/25 History mg-160 mg-1,000 mg capsule (Fish Oil) Held on 08/10/25. Instructions: Resume on 08/17/25. You may resume One week after surgery Exam Height,Weight and Vital Signs: Height 6 ft 2 in Weight 97.522 kg Last Vital Signs Pulse 71 07/27/25 10:14 Resp 17 07/27/25 10:14 BP 100/65 07/27/25 10:14 Pulse Ox 97 07/27/25 10:14 O2 Del Method Room Air 07/27/25 10:14 Pertinent Lab Results Pertinent Lab Results: Laboratory Tests 12/06/24 09:29 WBC 5.0 Hgb 14.6 Hct 43.8 Plt Count 172 Sodium 141 Potassium 3.8 Chloride 109 H Carbon Dioxide 26 BUN 21 H Creatinine 0.76 Narrative Narrative: EKG 07/2025 sinus bradycardia with sinus arrhythmia ECHO 2022 Conclusions: - The left ventricular systolic function is normal. The calculated ejection fraction is 58% by biplane method. - No obvious valvular pathology seen on this study. Airway Mallampati Class: II TM Dist: >3cm Neck ROM: Limited Adult Head Mouth w/Numbe Teeth:  1. Cap Loose/Missing/Broken Teeth: No (#8 capped, crowns in molars) Heart: RRR Lungs: CTAB Assessment and Plan Assessment Anesthesia Assessment: Chart Reviewed Final Anesthetic Review Family History of Problems with Anesthesia: No History of Problems with Anesthesia: No Documented by User: Jak Ybarra MD 08/10/25 08:40 PMFSH Past Medical History Medical History Osteoarthritis Exertional chest pain Atypical nevi Overweight with body mass index (BMI) of 28 to 28.9 in adult History of echocardiogram (~09/25/22) Atopic dermatitis Mild hypercholesterolemia Left varicocele Seasonal allergies CAD (coronary artery disease) CARLTON (obstructive sleep apnea) Arthritis Family History Family History Father No problems noted. Mother Afib Surgical History Surgical History Stented coronary artery (~09/2022) H/O right inguinal hernia repair Hx of left inguinal hernia repair H/O colonoscopy (~12/28/20) Social History Social History Alcohol intake: current Alcohol intake frequency: holidays/special occasions only Patient Tobacco Use Status: Never used Tobacco Use of substances other than those prescribed or required for medical reasons: No Have you been hit, kicked, punched, or otherwise hurt by someone within the past year? If so, by whom?: No Are you DNR?: No Advance Directives: No Advance Directives Information Provided: Yes Advance Directives on File: No Meds Allergies Allergy/AdvReac Type Severity Reaction Status Date / Time HAYFEVER Allergy Mild ITCHY Uncoded 11/16/24 11:20 EYES, RUNNY NOSE, ETC. Home Medications ?Medication ?Instructions ?Recorded ?Confirmed ?Last Taken ?Type multivitamin 1 tab PO DAILY 12/25/20 07/27/25 08/09/25 History aspirin 81 mg tablet,delayed 81 mg PO DAILY 09/17/22 07/27/25 08/08/25 History release (Adult Aspirin Regimen) Held on 08/10/25. Instructions: Resume on 08/17/25. You may resume 1 week after surgery omega 6-wqo-mkz-fish oil 100 1 cap PO 3XW 11/16/24 07/27/25 07/19/25 History mg-160 mg-1,000 mg capsule (Fish Oil) Held on 08/10/25. Instructions: Resume on 08/17/25. You may resume One week after surgery Exam Exam Date and Time: 08/10/25 Airway Adult Head Mouth w/Numbe Teeth:  1. Cap Assessment and Plan Assessment Anesthesia Assessment: Anesthesia Plan Discussed Final Anesthetic Review NPO: Yes ASA Class: III Final Preanesthetic Review: No Changes in Pt Med Stat, Meds/Allgs Chart Reviewed, Consent Obtained/Reviewed and Anes Risks/Benef Reviewed Patient Risk: Low Procedure Risk: Low Anesthetic Plan Anesthetic Plan: GA Disposition: Standard PACU
--- NOTE | ~2025-08-10 | FL_ITS ---
EXAMINATION: FLUOROSCOPY GUIDANCE FOR NEEDLE PLACEMENT CLINICAL INFORMATION: C6-7 ACDF COMPARISON: Previous CT of the cervical spine April 2025 and MRI of the cervical spine February 2025 TECHNIQUE: Intraoperative fluoroscopic guidance provided for cervical spine surgery. FINDINGS: 2 intraoperative fluoroscopic images demonstrate new ACDF hardware at C6-7. FLUOROSCOPY TIME: 5.8 seconds DOSE AREA PRODUCT: 0.35 Gy-cm2 FL/FL guidance in OR IMPRESSION: Fluoroscopy guidance for cervical spine surgery. Electronically signed by: Marjorie Garrett MD 08/10/2025 09:24 AM ESAU
[2025-08-10] MEDS: Lactated Ringers 1,000 ML 100 ML IVCONT (06:13)
[2025-08-10 06:16] VITALS: BMI 27.3
[2025-08-10 06:23] VITALS: BP 117/80; PULSE 68; RESP 18; TEMP 36.9; O2SAT 95
--- NOTE | 2025-08-10 07:01 | MHC.SHP ---
Pre-Procedural Eval Section A - 24 Hr Update-Section A only Date of Service: 08/10/25 The patient is an INPATIENT: No Changes since office visit: No Cold of Flu in the past 2 weeks, No New Medical Problems, No Changes in Medication and No Patient answered all questions The patient has been examined within 24 hours of the surgical procedure. The History & Physical has been completed within 30 days and I have reviewed it.: No Section B - Complete if H&P > 30 days Chief Complaint: Other spondylosis with radiculopathy, cervical reg Allergies: Allergies Allergy/AdvReac Type Severity Reaction Status Date / Time HAYFEVER Allergy Mild ITCHY Uncoded 11/16/24 11:20 EYES, RUNNY NOSE, ETC. Review of Systems Sugical H&P ROS: Negative: Constitution, Cardiovascular, Respiratory, Neurological, Psychiatric, Hem-Onc, Allergic/Immunologic, Gastrointestinal, Genitourinary, Musculoskeletal, Integumentary, Endocrine and Eyes/Ears/Nose/Throat Exam Surgical H&P Exam: Normal: HEENT, Normal: Heart, Normal: Lungs, Normal: Extremities, Normal: Abdomen, Normal: Skin and Normal: Neurological (awake, alert,oriented x 3 ) Plan Diagnosis/Plan: Unchanged C6-7 anterior cervical diskectomy and fusion Time Spent With Patient Time: Total time managing care of this patient today __6__ minutes.
--- NOTE | 2025-08-10 07:03 | PM.DS ---
DS: Providers Provider Date of Service: 08/10/25 Date of discharge: 08/10/25 Primary care physician: Dmo Arroyo MD Admitting clinician: Zacarias Donnelly DS: Diagnosis Discharge Diagnosis (1) Cervical spondylosis with radiculopathy: Status: Acute DS: Summary Time Attestation Discharge Coordination Time (in mins): 6 Quality: Safe Use of Opioids Does Pt have an Active Cancer Diagnosis on the Problem List?: No Quality: Stroke Does the patient have a stroke diagnosis?: No Physical Exam Vital Signs: Vital Signs: Last Vital Signs Temp 98.5 F 08/10/25 06:23 Pulse 68 08/10/25 06:23 Resp 18 08/10/25 06:23 BP 117/80 08/10/25 06:23 Pulse Ox 95 08/10/25 06:23 O2 Del Method Room Air 08/10/25 06:23 BMI result Body Mass Index 27.3 Discharge Plan Discharge Patient Disposition: Home, Self-Care Referrals: Dom Arroyo MD [Primary Care Provider, Internal Medicine] - 1 Week Discharge Medications: New docusate sodium [Colace] 100 mg capsule 100 mg PO BID Qty: 20 0RF oxycodone 5 mg tablet 5 mg PO Q4H PRN (Reason: pain) Qty: 20 0RF Rx Instructions: Partial Fill upon patient request. Continued atorvastatin 80 mg tablet 80 mg PO DAILY Qty: 90 3RF multivitamin Tablet 1 tab PO DAILY Held aspirin [Adult Aspirin Regimen] 81 mg tablet,delayed release (DR/EC) 81 mg PO DAILY Hold Instructions: Resume on 08/17/25. You may resume 1 week after surgery Fish Oil 100-160-1,000 mg capsule 1 cap PO 3XW Hold Instructions: Resume on 08/17/25. You may resume One week after surgery Discharge Orders: Discharge Order (Routine); Ordered 08/10/25 Ordered By: Dustin Smith Diet: Advance to usual diet Activity on Discharge: As tolerated Activity Restrictions/Additional Instructions: After your spinal surgery we ask you to observe the following restrictions/guidelines: Activity: It is normal to feel some discomfort as you increase your activity, but that will improve with time. We ask you avoid heavy lifting or acitivities that cause pain. As a general rule, 8lbs is a safe limit for lifting right after surgery. Walk as much as you feel comfortable but not to exhaustion. You will feel extra tired the first few days after surgery. Stay well hydrated. It is OK to walk up and down stairs You may return to driving when you are off narcotics (such as vicodin, oxycodone, dilaudid, etc), and you are back to normal functional capacity. If you have any concerns please check with office before driving. Return to work is specific to each patient and each surgery, so please speak with your doctor/PA at first follow up. Please bring paperwork such as FMLA at that time if you need it filled out. Medications: You can restart aspirin and fish oil 1 week after surgery For optimum pain control, it is best to start with a combination of 500 mg of Tylenol every 4 hours with 600 mg of Motrin every 8 hours, and use narcotics as needed in between for breakthrough pain. We will give you a short supply of narcotics after surgery (usually one weeks worth). If you need more please call the office but do not use more than prescribed. You will need to give our office 48 hours notice if you need narcotics refilled and we do not fill narcotics on weekends or evenings. If you are on a narcotic, it is a good idea to take a stool softener such as colace or senna to avoid constipation If you take blood thinner such as aspirin, Plavix, Coumadin, Effient, Eliquis etc for conditions such as Afib, DVT, Pulmonary embolus, coronary disease, stents etc please speak with your surgeon about specific details as to when you can resume these medications. Follow up: Please call the office, , after surgery to arrange a 3 week follow up for wound check. Wound Care: You may remove your dressing on the first day after surgery. ?You may ?leave open to air. Please do not remove the steri strips underneath. they will fall off on their own in one week. IT IS NORMAL FOR THE WOUND TO OOZE OR BE BLOODY FOR A FEW DAYS AFTER SURGERY. ?IF THIS HAPPENS JUST PLACE NEW DRESSING OVER IT TO AVOID STAINING CLOTHES. You may shower on post op day # 1 We ask that you do not let the water soak the wound. If it does get wet, just towel dry lightly. Please do not scrub your incision or place any type of chemical/ointment on the wound. No tub baths, pools or jacuzzis for one month. If you have any leaking or redness from your wound, or fevers, please call office Print Language: Montserratian
--- NOTE | 2025-08-10 08:42 | P.OP_ITS ---
Operative Note Operative Note Date of Service: 08/10/25 Narrative: Preoperative Diagnosis: Left cervical radiculopathy Procedure: C6-7 Anterior discectomy, arthrodesis and implantation cage ; C6-7 anterior instrumentation ; local autograft; microscope Informed Consent was obtained for this operation. I have explained the nature, purpose and benefits of the operation. I have discussed the risks and benefit of the operation including possible complications or adverse events with patie nt/family. Alternative(s) were discussed with the patient with their relative benefits and risks as well as the consequences of not accepting the operation were included in obtaining consent. Surgeon: GEORGE BARNEY MD, PHD Procedure Assisted By: maria del carmen Jacobsen Description of Procedure: this patient is suffering from a left cervical radiculopathy in a C7 distribution. There is possible involvement of the ulnar nerve as well. He was offered an anterior diskectomy and fusion.The procedure complications were explained. The patient was consented. The patient was brought to the operating room and endotracheally intubated. The patient was put in supine position with slight extension of the neck. Prep and drape was done followed by timeout. A mid cervical incision was made followed by opening of the platysma. The prevertebral fascia was reached following the natural planes while the physician clerical administrative assistant provided manual retraction. The prevertebral fascia was opened to expose the disc space. A spinal needle was placed in the disk space to confirm the correct level with xray. The longus colli muscles were released bilaterally and a self retaining retractor was inserted. Two Walford pins were placed in the C6 and C7 vertebral bodies and distraction was give over the interspace. The discectomy was completed toward the posterior annulus of the disc. The microscope was brou lennox in. The remainder of the discectomy was completed. The posterior ligament was opened and resected to expose the underlying dura. Osteophytes were resected from the body of C6 and C7 to decompress the underlying spinal cord and saved for autograft. Bilateral foraminotomies were done. The endplates were prepared after which a 6 mm cage filled with autograft was inserted into the disc space. A separate attached plate was locked down with 2 x 14 mm screws as anterior instrumentation. Final x-rays in AP and lateral projection showed a satisfactory position of the implant. The physician clerical administrative assistant took over. The Walford pin was removed. Hemostasis was done. He closed the incision in 2 layers with a 3-0 Vicryl. Steri-Strips used to approximate incision. An OpSite with Tegaderm was used to cover the incision. All sponge and needle counts were correct. Patient was extubated and transported in stable is to recovery room. Anesthesia: General Estimated Blood Loss (ml): 30 Duration of Surgery: 45 minutes Postoperative Plan: Discharge home Complications: None
[2025-08-10 08:52] VITALS: BP 125/69; PULSE 75; RESP 10; TEMP 36.4; O2SAT 94
[2025-08-10 08:57] VITALS: BP 125/66; PULSE 75; RESP 12; O2SAT 96
[2025-08-10 09:02] VITALS: BP 110/71; PULSE 86; RESP 13; O2SAT 94
[2025-08-10 09:07] VITALS: BP 117/72; PULSE 71; RESP 12; O2SAT 94
[2025-08-10 09:20] VITALS: BP 114/69; PULSE 67; RESP 12; TEMP 36.1; O2SAT 94
== END 2025-08-10 09:48 | disposition home or self-care (01) ==
PROVIDERS: PCP Internal Medicine; Visit Provider Neurological Surgery
PROC: (CPT 22551; principal; 2025-08-10 07:30)
DX: M47.22 Other spondylosis with radiculopathy, cervical region (principal); M50.123 Cervical disc disorder at C6-C7 level with radiculopathy; I25.10 Atherosclerotic heart disease of native coronary artery without angina pectoris; Z95.5 Presence of coronary angioplasty implant and graft; E78.00 Pure hypercholesterolemia, unspecified; G47.33 Obstructive sleep apnea (adult) (pediatric); E66.3 Overweight; Z68.28 Body mass index [BMI] 28.0-28.9, adult; Z79.82 Long term (current) use of aspirin; Z79.899 Other long term (current) drug therapy
CPT/HCPCS: 22551; 22853; 22845; 20936; C1713; C1889; J0131; J0690; J1171; J2003; J2250; J2405; J2704; J3010

== ENCOUNTER → 2025-08-10 06:01 | Outpatient (BNV) | payer MEDICARE, OTHER, SELFPAY ==
[2025-07-13 13:15] VITALS: BP 100/60; BP 118/72; BP 128/66
== END ==
PROVIDERS: PCP Internal Medicine; Visit Provider Neurological Surgery
DX: M47.22 Other spondylosis with radiculopathy, cervical region (principal)
CPT/HCPCS: 20936; 22551; 22845; 22853; 99499

== ENCOUNTER 2025-08-23 10:55 | Outpatient (AMB) | payer MEDICARE, OTHER, SELFPAY ==
[2025-07-13 13:15] VITALS: BP 100/60; BP 118/72; BP 128/66
--- OUTSIDE RECORDS SUMMARY | 2025-08-23 14:13 | XMS_ITS | Clinical Summary ---
Author Organization [facility] Address [address] [place] [phone] Phone Care Team Providers Care Wood Carver Name Role Phone Jass White DO Primary [...] times 3 prn CP 3 Active omega 3-aqj-uwc-fish oil (FISH OIL) 1,000 mg (120 mg-180 [...] O O O O O Care Teams Wood Carver Relationship Specialty Start Date End Date Jass White DO [address] [place] [id number] PCP - General Internal Medicine 02/05/22 Additional Source Comments The information contained in this document represents components of the legal health record. It is not the complete legal health record.[facility]
== END 2025-08-23 10:55 | disposition home or self-care (01) ==
LOC: HO.HMGAL 10:55
PROVIDERS: PCP Internal Medicine; Visit Provider Registered Nurse Emergency
DX: J30.89 Other allergic rhinitis (principal)
CPT/HCPCS: 95117; 95165

== ENCOUNTER 2025-09-01 13:26 | Outpatient (AMB) | payer MEDICARE, OTHER, SELFPAY ==
[2025-07-13 13:15] VITALS: BP 100/60; BP 118/72; BP 128/66
--- NOTE | 2025-09-01 13:29 | HO.SPINEOV ---
Intake Visit Reasons: 1st Post Op Intake Note: Mr. Munoz is here today for his 1st post op. Zipper Lining Folder Required: No Allergies HAYFEVER Allergy (Mild, Uncoded 11/16/24 11:20) ITCHY EYES, RUNNY NOSE, ETC. Assessment & Plan Assessment & Plan (1) Cervical spondylosis with radiculopathy: Code(s): M47.22 - Other spondylosis with radiculopathy, cervical region Category: Medical (2) Ulnar nerve entrapment at elbow: Code(s): G56.20 - Lesion of ulnar nerve, unspecified upper limb Category: Medical Plan Mr Munoz is 3 weeks out from his C6-7 ACDF. He was doing very well in the beginning, did not need any pain medication, but about 10-14 days into his recovery did start to notice some left-sided neck pain afterwards doing some exercises. It was really bad for about 24 hours where he needed some oxycodone but after that it seems to have lessened. It is still bothersome however. It limits his range of motion in it feels like a pulling sensation on the left side of his neck. The rest of his recovery was otherwise uneventful. Unfortunately it did not help the numbness in his hand or the strength. He was dealing with an overlapping ulnar nerve entrapment issue. It was thought originally that he was going to have an ulnar nerve release but based on the MRI findings and his clinical presentation the ACDF was done 1st. Currently with respect to the ulnar neuropathy feels like he has it relatively well managed with doing some gripping exercises and working on his strength. He still does get the tingling and numbness so down into his hands in the ulnar distribution. At night sometimes depending on his neck position we he will also get it into his palms as well. His wound is healing up nicely. He has no specific restrictions at this point other than just no heavy lifting and prolonged overhead work. I would like to see him back in 6 weeks with a set of x-rays and we can reassess. I did reassure him that I think the neck pain symptoms on the left side will go away, they sound muscular. Dustin Donnelly MD, PhD [facility] Orders: Orders XR cervical spine 4V 6 Weeks G56.20 - Lesion of ulnar nerve, unspecified upper limb, M47.22 - Other spondylosis with radiculopathy, cervical region Coding Level of Care Code Global (26608) Diagnoses Cervical spondylosis with radiculopathy M47.22 Ulnar nerve entrapment at elbow G56.20
--- OUTSIDE RECORDS SUMMARY | 2025-09-01 13:29 | XMS_ITS | Clinical Summary ---
Author Organization [facility] Address [address] [place] [phone] Phone Care Team Providers Care Store Product Demonstrator Name Role Phone Jass White DO Primary [...] times 3 prn CP 3 Active omega 7-gor-jgx-fish oil (FISH OIL) 1,000 mg (120 mg-180 [...] O O O O O Care Teams Store Product Demonstrator Relationship Specialty Start Date End Date Jass White DO [address] [place] [id number] PCP - General Internal Medicine 02/05/22 Additional Source Comments The information contained in this document represents components of the legal health record. It is not the complete legal health record.[facility]
== END 2025-09-01 14:26 | disposition home or self-care (01) ==
LOC: HO.HNS 13:27
PROVIDERS: PCP Internal Medicine; Visit Provider Physician Assistant
DX: M47.22 Other spondylosis with radiculopathy, cervical region (principal); G56.20 Lesion of ulnar nerve, unspecified upper limb
CPT/HCPCS: 99024

== ENCOUNTER → 2025-09-01 13:26 | Outpatient (BNVA) | payer MEDICARE, OTHER, SELFPAY ==
[2025-07-13 13:15] VITALS: BP 100/60; BP 118/72; BP 128/66
== END ==
PROVIDERS: PCP Internal Medicine; Visit Provider Physician Assistant
DX: M47.22 Other spondylosis with radiculopathy, cervical region (principal); G56.22 Lesion of ulnar nerve, left upper limb; Z98.890 Other specified postprocedural states
CPT/HCPCS: 99212